=== PATIENT | male | born 1955 | race Caucasian/White ===

== ENCOUNTER 2018-08-25 16:23 | Emergency (ER) | payer BC ==
[~2018-08-25] VITALS: Ht 180.3 cm; Wt 79.4 kg
--- OUTSIDE RECORDS SUMMARY | ~2018-08-25 | XMS | Encounter Summary ---
Demographics + + + | Address | [address] | | | [place] [address] | + + + | Home Phone | | + + + | Preferred Language | Unknown | + + + | Marital Status | Single | + + + | Sikhism Affiliation | CAT | + + + | Race | White | + + + | Ethnic Group | Not or | + + + Author + + + | Author | [facility] | + + + | Organization | [facility] | + + + | Address | Unknown | + + + | Phone | Unavailable | + + + Support + + +---------+ + | Name | Relationship | Address | Phone | + + +---------+ + | Mirian Jha | ECON | Unknown | | + + +---------+ + Care Team Providers + +------+ + | Care Guitar Player Name | Role | Phone | + +------+ + PCP | Unavailable | + +------+ + Encounter Details +--------+ + + + + | Date | Type | Department | Care Team | Description | +--------+ + + + + | 04/08/ | DELETED | Preoperative | Consult, | ANESTHESIA/SEDATION | | 2001 | TRANSCRIPTI | Medicine Clinic at | Anesthesia [address] | | | | ON | [facility] [address]th Floor [address] [facility] | | | | | [address] | Road [place], [place] | | | | | Code: [address] | [address] | | | | | for Health and | | | | | | Healing,4th Floor | | | | | | [place], [place] | | | | | | [address] | | | | | | [phone] | | | +--------+ + + + + Social History + +-------+ +--------+------+ | Tobacco Use | Types | Packs/Day | Years | Date | | | | | Used | | + +-------+ +--------+------+ | Never Assessed | | | | | + +-------+ +--------+------+ + + + | Sex Assigned at | Date Recorded | | | | + + + | Not on file | | + + + + + + + | Job Start Date | Occupation | Industry | + + + + | Not on file | Not on file | Not on file | + + + + + + + + | Travel History | Travel Start | Travel End | + + + + + + | No recent travel history available. | + + documented as of this encounter Plan of Treatment Not on filedocumented as of this encounter Procedures + +--------+ + + + | Procedure Name | Priori | Date/Time | Associated Diagnosis | Comments | | | ty | | | | + +--------+ + + + | ANESTHESIA/SEDATION | | 04/08/2001 | | Results for this | | | | 11:17 AM | | procedure are in the | | | | PST | | results section. | + +--------+ + + + documented in this encounter Visit Diagnoses Not on filedocumented in this encounter"
--- OUTSIDE RECORDS SUMMARY | ~2018-08-25 | XMS | Encounter Summary ---
Demographics + + + | Address | [address] | | | [place] [address] | + + + | Home Phone | | + + + | Preferred Language | Unknown | + + + | Marital Status | Single | + + + | Voodoo Affiliation | CAT | + + + | Race | White | + + + | Ethnic Group | Not or | + + + Author + + + | Organization | Unknown | + + + | Address | Unknown | + + + | Phone | Unavailable | + + + Support + + +---------+ + | Name | Relationship | Address | Phone | + + +---------+ + | Mirian Jha | ECON | Unknown | | + + +---------+ + Care Team Providers + +------+ + | Care Data Entry Machine Operator Name | Role | Phone | + +------+ + PCP | Unavailable | + +------+ + Encounter Details +--------+ + + + + | Date | Type | Department | Care Team | Description | +--------+ + + + + | 03/09/ | Results | | [facility] | | | 2000 | Only | | [address] | | | | | | [place] | | | | | | [place] [address] | | +--------+ + + + + [...] | + +--------+ + + + | SURGICAL PATHOLOGY | Routin | 03/09/2001 | | Results for this | | | e | | | procedure are in the | | | | | | results section. | + +--------+ + + + documented in this encounter Results SURGICAL PATHOLOGY (03/09/2001) + + + + + + | Component | Value | Ref Range | Performed | Pathologist | | | | | At | Signature | + + + + + + | SURGICAL | SOURCE OF SPECIMEN: | | [facility] | | | PATHOLOGY | Outside consultation | | DEPARTMENT | | | | Materials Received:A | | OF | | | | total of sixteen slides | | PATHOLOGY | | | | are received from [facility] | | | | | | [facility],[place] | | | | | | [facility] [place]. Ten | | | | | | slides bear outside | | | | | | accession number | | | | | | [id number], andsix slides | | | | | | bear outside accession | | | | | | number [id number]. Two | | | | | | pathology | | | | | | reportsaccompany the | | | | | | slides bearing the same | | | | | | accession numbers dated | | | | | | 03/15/98, and02/14/98 | | | | | | respectively. 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 | | | | | | Clinton, Ph.D., | | | | | | M.DGamaliel/PathologistSixteen | | | | | | slides are returned with | | | | | | the reportT:03/11/01:re | | | | | | I have reviewed all | | | | | | diagnostic slides and | | | | | | have edited the gross | | | | | | and/ormicroscopic | | | | | | portion of this report | | | | | | as part of my pathologic | | | | | | assessment andfinal | | | | | | diagnosis. Clinical | | | | | | History:The patient is a | | | | | | 45 year old | | | | | | male.Rendering | | | | | | Diagnostician: An | | | | | | joseph Alonzo | | | | | | Ph.D.,M.D.PathologistEle | | | | | | ctronically Signed | | | | | | 03/11/2001Comment: | | | | | | SOURCE OF SPECIMEN: | | | | | | Outside consultation | | | | + + + + + + + + | Specimen | + + | | + + + + + + + | Performing | Address | City/State/Zipcode | Phone Number | | Organization | | | | + + + + + | [facility] | [address] | [place] [address] | | | PATHOLOGY | [place] | | | + + + + + | [facility] | [address] | [place] [address] | | | PATHOLOGY | [place] | | | + + + + + documented in this encounter Visit Diagnoses Not on filedocumented in this encounter"
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
--- OUTSIDE RECORDS SUMMARY | ~2018-08-25 | XMS | Encounter Summary ---
Demographics + + + | Address | [address] | | | [place] [address] | + + + | Home Phone | | + + + | Preferred Language | Unknown | + + + | Marital Status | Single | + + + | Scientology Affiliation | CAT | + + + | Race | White | + + + | Ethnic Group | Not or | + + + Author + + + | Author | [facility] | + + + | Organization | [facility] | + + + | Address | Unknown | + + + | Phone | Unavailable | + + + Support + + +---------+ + | Name | Relationship | Address | Phone | + + +---------+ + | Mirian Jha | ECON | Unknown | | + + +---------+ + Care Team Providers + +------+ + | Care Environmental Engineering Professor Name | Role | Phone | + [...] | | | | | region | [place], | [address] | | | | | Balance | [place] | for Health | | | | | problem | [address] | and Healing, | | | | | 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 | [phone] | [place], [place] | | | | | Bilateral | Fax: | [address] | | | | | carpal | [phone] | Phone: | | | | | tunnel | | [phone] | | | | | syndrome | | Fax: | | | | | Colorectal | | [phone] | | | | | cancer (HCC) [...] | gy | stenosis in | [address] | | | | | | cervical | [address] | | | | | | region | [place], | | | | | | Balance | [place] | | | | | | problem | [address] | | | | | | Facet | Phone: | | | | | | arthropathy | [phone] | | | | | | Bilateral | Fax: | | | | | | carpal | [phone] | | | | | | tunnel [...] | | | stenosis in | [address] | | | | | | cervical | [address] | | | | | | region | [place], | | | | | | Balance | [place] | | | | | | problem | [address] | | | | | | Facet | Phone: | | | | | | arthropathy | [phone] | | | | | | Bilateral | Fax: | | | | | | carpal | [phone] | | | | | | tunnel [...] | | | Therapy | Spinal | [address], | | | | | | stenosis in | [address] | | | | | | cervical | [address] | | | | | | region | [place], | | | | | | Balance | [place] | | | | | | problem | [address] | | | | | | Facet | Phone: | | | | | | arthropathy | [phone] | | | | | | Bilateral | Fax: | | | | | | carpal | [phone] | | | | | | tunnel [...] | | | | | region | [place], | | | | | | Balance | [place] | | | | | | problem | [address] | | | | | | Facet | Phone: | | | | | | arthropathy | [phone] | | | | | | Bilateral | Fax: | | | | | | carpal | [phone] | | | | | | tunnel [...] | | | | | BEND | [address] | | | | | | [address] | [address] | | | | | | CLINIC | [place], [place] | | | | | | DERMATOLOGY | [address] | | | | | | [address] | Phone: | | | | | | MEDICAL | [phone] | | | | | | [address] | Fax: | | | | | | [place], [place] | [phone] | | | | | | [address] | | | | | | | Phone: | | | | | | | [phone] | | | | | | | Fax: | | | | | | | [phone] | | +--------+ + + + + + Encounter Details +--------+---------+ + + + | Date | Type | Department | Care Team | Description | +--------+---------+ + + + | 06/06/ | Office | Neurosurgery at | Farzad Balbuena, | Spinal stenosis in | | 2016 | Visit | [facility] [address] | [address] | cervical region | | | | Ave Mailcode: CH8N | Ave [place], [place] | (Primary Dx); | | | | [place] for [facility] | [address] | Balance problem; | | | | and [facility] | [phone] | Facet arthropathy; | | | | Floor [place], [place] | | Bilateral carpal | | | | [address] | | tunnel syndrome; | | | | [phone] | | Colorectal cancer | | | [...] 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 Rep orts life long [...] questionna sharyn that will be scanned into [facility]. Current medication list: Current Outpatient Prescriptions Medication [...] involving C3. Dictated and Signed by: Harry Palacio MD Electronically signed: 12/30/2014 10:13 AM MRI [...] control of bowel/bladder). I spent 45 minutes [id number] with the patient. I spent more than 50% of this visit in co ordination of care and counseling in which we discussed diagnosis, treatment, imaging studie s and follow-up. Farzad Balbuena PA-C NEUROSURGERY AT [facility] [address] Mailcode: [address] [place] [address] documented in this e ncounter [...]
--- OUTSIDE RECORDS SUMMARY | ~2018-08-25 | XMS | Encounter Summary ---
Demographics + + + | Address | [address] | | | [place] [address] | + + + | Home Phone | | + + + | Preferred Language | Unknown | + + + | Marital Status | Single | + + + | Episcopal Affiliation | CAT | + + + | Race | White | + + + | Ethnic Group | Not or | + + + Author + + + | Author | [facility] | + + + | Organization | [facility] | + + + | Address | Unknown | + + + | Phone | Unavailable | + + + Support + + +---------+ + | Name | Relationship | Address | Phone | + + +---------+ + | Mirian Jha | ECON | Unknown | | + + +---------+ + Care Team Providers + +------+ + | Care Fuse Cutter Name | Role | Phone | + +------+ + PCP | Unavailable | + +------+ + Encounter Details +--------+ + + + + | Date | Type | Department | Care Team | Description | +--------+ + + + + | 06/05/ | Office | [facility] | Note, Outpatient | Progress Note | | 2001 | Visit-Trans | MEDICINE | Clinic | | | | cribed | | | | +--------+ + + + [...] + + documented as of this encounter Progress Notes Michael, [facility] Specialists In - 11/29/2005 1:12 AM PDTCLINIC DATE: 06/05/2001 COLORECTAL SURGERY CLINIC REASON FOR VISIT: Two-month followup status post abdominoperineal resection for recurrent anal cancer. HISTORY OF PRESENT ILLNESS: Mr. Napoles continues to have slow recovery from his surgery. He mostly has fatigue and pain in his midline incision of the perineum. His appetite is barely adequate. He says he is somewhat anorexic. He denies any fever, chills, nausea, or vomiting. His colostomy is functioning well. He is maintaining his hydration. PHYSICAL EXAMINATION: GENERAL: He appears fairly well although not as animated as he usually is. PELVIC: His midline would is well healed. His colostomy also appears normal. His perineal wound has healed with the exception of a 1-cm section in the most posterior portion. ASSESSMENT AND RECOMMENDATIONS: Fair recovery after abdominoperineal resection. I do not feel that there is any focal reason for his slow recovery. He has no evidence of infection or bowel obstruction. I have encouraged him to take nutritional supplements such as Carnations instant breakfast or Ensure at least 3 times a day to maintain his nutrition. He should also continue to take liquids. He certainly does not appear ready to go back to work. We filled out some paperwork so that he can start a flexible work schedule through his job. I will see him back in 3 months for routine followup. Dakota Macario M.D. SLAVA / CECE [id number] / [id number] / [id number] / [id number] C: 07/02/2001 norah cc: Obdulio Overton M.D. [address] [facility] [place] [address] Guido Alvarez M.D. [address] [place] [address] [id number] signed by Michael, [facility] In at 11/29/2005 1:12 AM NANNETTEdoc umented in this encounter Plan of Treatment Not on filedocumented as of this encounter Visit Diagnoses Not on filedocumented in this encounter"
--- OUTSIDE RECORDS SUMMARY | ~2018-08-25 | XMS | Encounter Summary ---
Demographics + + + | Address | [address] | | | [place] [address] | + + + | Home Phone | | + + + | Preferred Language | Unknown | + + + | Marital Status | Single | + + + | Latter Day Affiliation | CAT | + + + [...] Team Providers + +------+ + | Care Vending Manager Name | Role | Phone | + +------+ + PCP | Unavailable | + +------+ + Encounter Details +--------+ + + + + | Date | Type | Department | Care Team | Description | +--------+ + + + + | 04/07/ | Results | | Dakota Macario | | | 2001 | Only | | [address] | | | | | | [place], | | | | | | [place] [address] | | +--------+ + + + + [...] | + +--------+ + + + | BLOOD BANK PRODUCT | Routin | 04/07/2001 | | Results for this | | | e | 10:30 AM | | procedure are in the | | | | PST | | results section. | + +--------+ + + + | BLOOD BANK PRODUCT | Routin | 04/07/2001 | | Results for this | | | e | 10:30 AM | | procedure are in the | | | | PST | | results section. | + +--------+ + + + | TYPE AND SCREEN | Routin | 04/07/2001 | | Results for this | | | e | 10:30 AM | | procedure are in the | | | | PST | | results section. | + +--------+ + + + | SURGICAL PATHOLOGY | Routin | 04/07/2001 | | Results for this | | | e | | | procedure are in the | | | | | | results section. | + +--------+ + + + documented in this encounter Results BLOOD BANK PRODUCT (04/07/2001 10:30 AM PST) + + + + + + | Component | Value | Ref Range | Performed | Pathologist | | | | | At | Signature | + + + + + + | PRODUCT | RED CELL LEUKOREDUCED | | [facility] | | | DESCRIPTION | | | DEPARTMENT | | | | | | OF | | | | | | PATHOLOGY | | + + + + + + | PRODUCT | [id number] | | [facility] | | | UNIT # | | | DEPARTMENT | | | | | | OF | | | | | | PATHOLOGY | | + + + + + + | UNIT ABO | A | | [facility] | | | | | | DEPARTMENT | | | | | | OF | | | | | | PATHOLOGY | | + + + + + + | UNIT RH | NEG | | [facility] | | | | | | DEPARTMENT | | | | | | OF | | | | | | PATHOLOGY | | + + + + + + | STATUS OF | Released | | [facility] | | | UNIT | | | DEPARTMENT | | | | | | OF | | | | | | PATHOLOGY | | + + + + + + + + | Specimen | + + | | + + + + + + + | Performing | Address | City/State/Zipcode | Phone Number | | Organization | | | | + + + + + | [facility] DEPARTMENT OF | [address] | [place] [address] | | | PATHOLOGY | [address] | | | + + + + + | [facility] | [address] | [place] [address] | | | PATHOLOGY | [address] | | | + + + + + BLOOD BANK PRODUCT (04/07/2001 10:30 AM PST) + + + + + + | Component | Value | Ref Range | Performed | Pathologist | | | | | At | Signature | + + + + + + | PRODUCT | RED CELL LEUKOREDUCED | | [facility] | | | DESCRIPTION | | | DEPARTMENT | | | | | | OF | | | | | | PATHOLOGY | | + + + + + + | PRODUCT | [id number] | | [facility] | | | UNIT # | | | DEPARTMENT | | | | | | OF | | | | | | PATHOLOGY | | + + + + + + | UNIT ABO | O | | [facility] | | | | | | DEPARTMENT | | | | | | OF | | | | | | PATHOLOGY | | + + + + + + | UNIT RH | NEG | | [facility] | | | | | | DEPARTMENT | | | | | | OF | | | | | | PATHOLOGY | | + + + + + + | STATUS OF | Released | | [facility] | | | UNIT | | | DEPARTMENT | | | | | | OF | | | | | | PATHOLOGY | | + + + + + + + + | Specimen | + + | | + + + + + + + | Performing | Address | City/State/Zipcode | Phone Number | | Organization | | | | + + + + + | [facility] DEPARTMENT OF | [address] | [place], [place] [address] | | | PATHOLOGY | [address] | | | + + + + + | [facility] DEPARTMENT OF | [address] | [place] [address] | | | PATHOLOGY | [address] | | | + + + + + TYPE AND SCREEN (04/07/2001 10:30 AM PST) + +-------+ + + + | Component | Value | Ref Range | Performed | Pathologist | | | | | At | Signature | + +-------+ + + + | ABO GROUP | A | | [facility] | | | | | | DEPARTMENT | | | | | | OF | | | | | | PATHOLOGY | | + +-------+ + + + | RH TYPE | NEG | | [facility] | | | | | | DEPARTMENT | | | | | | OF | | | | | | PATHOLOGY | | + +-------+ + + + | ANTIBODY | NEG | | [facility] | | | SCREEN | | | DEPARTMENT | | | | | | OF | | | | | | PATHOLOGY | | + +-------+ + + + + + | Specimen | + + | | + + + + + | Narrative | Performed At | + + + | SPEC. OUTDATE 04/11/01 @ 0700 | [facility] | | | DEPARTMENT OF | | | PATHOLOGY | + + + + + + + + | Performing | Address | City/State/Zipcode | Phone Number | | Organization | | | | + + + + + | [facility] DEPARTMENT OF | [address] | [place] [address] | | | PATHOLOGY | [address] | | | + + + + + | [facility] DEPARTMENT OF | [address] | [place] [address] | | | PATHOLOGY | [address] | | | + + + + + SURGICAL PATHOLOGY (04/07/2001) + + + + + + | Component | Value | Ref Range | Performed | Pathologist | | | | | At | Signature | + + + + + + | SURGICAL | SOURCE OF SPECIMEN:A | | [facility] | | | PATHOLOGY | Rectum Final Pathologic | | DEPARTMENT | | | | Diagnosis:Rectoanal | | OF | | | | segment, | | PATHOLOGY | | | | abdominoperineal | | | | | | resection:- 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, well | | | | | | differentiated- Tumor | | | | | | size: 1.5 x 0.6 cm- | | | | | | Tumor | | | | | | configuration: Exophy | | | | | | tic- All surgical | | | | | | margins free of tumor- | | | | | | Blood/lymphatic vessel | | | | | | invasion absent- | | | | | | Perineural invasion | | | | | | absent- 2 lymph nodes | | | | | | negative for malignancy | | | | | | (0/2)- TNM stage based | | | | | | on pathologic | | | | | | findings: T1 N0 | | | | | | MX Case reviewed | | | | | | by:Samara Floyd, | | | | | | M.D./Alejandra Andersen | | | | | | Tl, | | | | | | M.D./PathologistT:04/15/ | | | | | | 02/ct I have reviewed | | | | | | all diagnostic slides | | | | | | and have edited the | | | | | | gross and/ormicroscopic | | | | | | portion of this report | | | | | | as part of my pathologic | | | | | | assessment andfinal | | | | | | diagnosis. Clinical | | | | | | History:The patient is a | | | | | | 45 year old male with | | | | | | recurrent anal | | | | | | carcinoma, excisedwith | | | | | | positive margins. Gross | | | | | | Description:Received is | | | | | | one specimen in formalin | | | | | | labeled | | | | | | "rectum." Received is | | | | | | a34.0 cm in length | | | | | | segment of rectosigmoid | | | | | | colon which is 3.0 cm | | | | | | incircumference at the | | | | | | proximal sigmoid margin | | | | | | and 5.5 cm in | | | | | | circumference atthe | | | | | | rectal distal | | | | | | margin. A 12.0 cm in | | | | | | length mesentery is | | | | | | present alongthe | | | | | | proximal segment of the | | | | | | sigmoid colon. There | | | | | | is a 1.5 x 0.6 | | | | | | cmtan-brown, centrally | | | | | | ulcerated tumor with | | | | | | raised borders. It | | | | | | straddles | | | | | | thesquamocolumnar | | | | | | junction and is located | | | | | | in the distal third of | | | | | | the rectumextending to | | | | | | 0.5 cm from the distal | | | | | | surgical margin and 28.0 | | | | | | cm from theproximal | | | | | | surgical | | | | | | margin. Cutting | | | | | | through the tumor | | | | | | reveals that itinvades | | | | | | the muscularis propria, | | | | | | but does not go through. | | | | | | The remainder ofthe | | | | | | mucosal surface appears | | | | | | unremarkable. The | | | | | | peritoneal reflection | | | | | | is24.0 cm in length from | | | | | | the distal | | | | | | margin. Also present | | | | | | is a strip ofperianal | | | | | | skin that measures 3.0 | | | | | | cm in length and 11.5 cm | | | | | | in circumference.The | | | | | | distal surgical margin | | | | | | is inked black and the | | | | | | proximal surgical | | | | | | marginis inked | | | | | | blue. The external | | | | | | serosal surface appears | | | | | | grossly unremarkable. | | | | | | Cassette Index:A1, | | | | | | section from the | | | | | | proximal surgical | | | | | | margin, RSA2, section | | | | | | from the distal surgical | | | | | | margin, RSA3, section | | | | | | from the distal surgical | | | | | | margin, RSA4, section | | | | | | from the tumor, RSA5, | | | | | | section from the tumor | | | | | | and the deep surgical | | | | | | margin, RSA6, section | | | | | | from the tumor and the | | | | | | deep surgical margin, | | | | | | RSA7, section from the | | | | | | colonic wall away from | | | | | | the area of the tumor, | | | | | | RSA8, section from the | | | | | | colonic mucosa away from | | | | | | the tumor, RSA9, two | | | | | | possible lymph nodes, | | | | | | RSA10, one possible | | | | | | lymph node, | | | | | | RSVK/AR/fRendering | | | | | | Diagnostician: Gay | | | | | | Tl | | | | | | M.ShivamPathologistElectroni | | | | | | diana Signed | | | | | | 04/15/2001Comment: | | | | | | SOURCE OF SPECIMEN: | | | | | | Rectum | | | | + + + + + + + + | Specimen | + + | | + + + + + + + | Performing | Address | City/State/Zipcode | Phone Number | | Organization | | | | + + + + + | [facility] | [address] | [place] [address] | | | PATHOLOGY | [address] | | | + + + + + | [facility] | [address] | [place] [address] | | | PATHOLOGY | [address] | | | + + + + + documented in this encounter Visit Diagnoses Not on filedocumented in this encounter
--- OUTSIDE RECORDS SUMMARY | ~2018-08-25 | XMS | Encounter Summary ---
Demographics + + + | Address | [address] | | | [place] [address] | + + + | Home Phone | | + + + | Preferred Language | Unknown | + + + | Marital Status | Single | + + + | Spiritism Affiliation | CAT | + + + | Race | White | + + + | Ethnic Group | Not or | + + + Author + + + | Author | [facility] | + + + | Organization | [facility] | + + + | Address | Unknown | + + + | Phone | Unavailable | + + + Support + + +---------+ + | Name | Relationship | Address | Phone | + + +---------+ + | Mirian Jha | ECON | Unknown | | + + +---------+ + Care Team Providers + +------+ + | Care Personal Financial Counselor Name | Role | Phone | + +------+ + PCP | Unavailable | + +------+ + Encounter Details +--------+ + + + + | Date | Type | Department | Care Team | Description | +--------+ + + + + | 09/07/ | Office | [facility] | Note, [...] documented as of this encounter Progress Notes Interface, Program Supervisor In - 11/21/2005 1:04 AM PDTCLINIC DATE: 09/07/2001 COLORECTAL SURGERY CLINIC SUBJECTIVE: Daniel returns for his 5-month followup after abdominoperineal resection for recurrent anal cancer. He is doing very well. The last time I saw him, he was having some failure to thrive, but this is completely resolved. He says it is because of better sleeping once he changed from a 2 piece to a 1-piece appliance. He otherwise is having no problems with his colostomy. He does still have erectile dysfunction since his surgery, and we will refer him to a urologist in the [place] [facility] to be evaluated. He is physically back to normal strength. He has been on a flexiplace work schedule, but believes that he is ready to return to full duty. This will likely mean that he will return to [place]. PHYSICAL EXAMINATION GENERAL: He looks well and is in good spirits. ABDOMEN: He has a well-healed midline incision with no evidence of ventral or parastomal hernias. His appliance was not removed. He has no hepatosplenomegaly. LYMPHATICS: There is no inguinal adenopathy. RECTAL: Rectum is surgically absent, and his perineal wound is completely healed. There is no evidence of occurrence or hernia. ASSESSMENT: No evidence of disease. I will see him back in 3 to 4 months for routine followup. We have provided him with a phone number for a doctor in the [facility] to address his erectile dysfunction. Dakota Macario M.D. SLAVA / CECE [id number] / [id number] / [id number] / cc: Ian Bourgeois M.D. [address] [place] [address] [id number] signed by Interface, Program Supervisor In at 11/21/2005 1: 04 AM PDTdocumented in this encounter Plan of Treatment Not on filedocumented as of this encounter Visit Diagnoses Not on filedocumented in this encounter"
--- OUTSIDE RECORDS SUMMARY | ~2018-08-25 | XMS | Encounter Summary ---
Demographics + + + | Address | [address] | | | [place] [address] | + + + | Home Phone | | + + + | Preferred Language | Unknown | + + + | Marital Status | Single | + + + | Religion Affiliation | CAT | + + + | Race | White | + + + | Ethnic Group | Not or | + + + Author + + + | Author | [facility] | + + + | Organization | [facility] | + + + | Address | Unknown | + + + | Phone | Unavailable | + + + Support + + +---------+ + | Name | Relationship | Address | Phone | + + +---------+ + | Mirian Jha | ECON | Unknown | | + + +---------+ + Care Team Providers + +------+ + | Care Optometric Assistant Name | Role | Phone | + +------+ + | Ramu Trinidad MD | PCP | | + +------+ + Reason for Visit Diagnostic Testing (Routine) + +--------+ + + [...] | | | | | region | [place], | [address] | | | | | Balance | [place] | for Health | | | | | problem | [address] | and Healing, | | | | | 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 | [phone] | [place], [place] | | | | | 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 | | [phone] | | | | | syndrome | | Fax: | | | | | Colorectal | | [phone] | | | | | cancer (HCC) [...] | + +--------+ + + + + Encounter Details +--------+ + + + + | Date | Type | Department | Care Team | Description | +--------+ + + + + | 08/22/ | Hospital | Neurophysiology | Gentry Bee MD | Liliam (Patient | | 2016 | Encounter | [facility] at [facility] 8th Floor | [address] | Request) | | | | [address] | [facility] [place] | | | | | Mail Code: CHE | [address] | | | | | [facility] | [phone] | | | | | and Healing, 8th | | | | | | floor [facility] [place] | [address] | | | | | [address] | [place], [place] | | | | | [phone] | [address] | | | | | | [phone] [place], | | | | | | [address] | | | | | | [address] [facility] | | | | | | [place], [place] | | | | | | [address] | | +--------+ + + + + [...] + + documented as of this encounter Medications at Time of Discharge + + + +---------+ + + | Medication | Sig | Dispensed | Refills | Start | End Date | | | | | | Date | | + + + +---------+ + + | aspirin EC 81 mg | Take by mouth. | | 0 | 01/02/20 | | | oral tablet,delayed | | | | 13 | | | release (/EC) | | | | | | + + + +---------+ + + | atorvastatin 20 mg | Take by mouth. | | 0 | 01/03/20 | | | oral tablet | | | | 15 | | + + + +---------+ + + | cholecalciferol, | Take 1,000 Units by | | 0 | 03/13/20 | | | Vitamin D3, 1,000 | mouth once daily. | | | 10 | | | unit oral capsule | | | | | | + + + +---------+ + + | cyclobenzaprine 10 | Take 10 mg by mouth | | 0 | | | | mg oral tablet | three times daily as | | | | | | | needed. Do not use | | | | | | | longer than 2-3 | | | | | | | weeks. | | | | | + + + +---------+ + + | traMADol 50 mg | Take 50 mg by mouth | | 0 | 04/26/19 | | | oral tablet | once daily as | | | 16 | | | | needed. | | | | | + + + +---------+ + + documented as of this encounter Plan of Treatment Not on filedocumented as of this encounter Visit Diagnoses Not on filedocumented in this encounter
--- OUTSIDE RECORDS SUMMARY | ~2018-08-25 | XMS | Encounter Summary ---
Demographics + + + | Address | [address] | | | [place] [address] | + + + | Home Phone | | + + + | Preferred Language | Unknown | + + + | Marital Status | Single | + + + | Yarsanism Affiliation | CAT | + + + [...] Team Providers + +------+ + | Care Locomotive Operator Name | Role | Phone | + +------+ + PCP | Unavailable | + +------+ + Encounter Details +--------+ + + + + | Date | Type | Department | Care Team | Description | +--------+ + + + + | 02/22/ | Results | | Other, Faculty | | | 2002 | Only | | [phone] | | +--------+ + + + + [...] | + +--------+ + + + | HEPATITIS C | Routin | 02/22/2003 | | Results for this | | QUANTITATIVE, PLASMA | e | 2:25 PM | | procedure are in the | | | | PST | | results section. | + +--------+ + + + | ALT, PLASMA | Routin | 02/22/2003 | | Results for this | | | e | 2:25 PM | | procedure are in the | | | | PST | | results section. | + +--------+ + + + | AST, PLASMA | Routin | 02/22/2003 | | Results for this | | | e | 2:25 PM | | procedure are in the | | | | PST | | results section. | + +--------+ + + + documented in this encounter Results ALT (02/22/2003 2:25 PM PST) + +-------+ + + + | Component | Value | Ref Range | Performed | Pathologist | | | | | At | Signature | + +-------+ + + + | ALT (SGPT) | 15 | 13 - 48 U/L | [facility] | | | | | | DEPARTMENT | | | | | | OF | | | | | | PATHOLOGY | | + +-------+ + + + + + | Specimen | + + | | + + + + + | Narrative | Performed At | + + + | Ordered by UNKNOWN DOCTOR | [facility] | | | DEPARTMENT OF | | | PATHOLOGY | + + + + + + + + | Performing | Address | City/State/Zipcode | Phone Number | | Organization | | | | + + + + + | [facility] | [address] | [place] [address] | | | PATHOLOGY | [address] | | | + + + + + | [facility] | [address] [place] [address] | [place] [address] | | | PATHOLOGY | [address] | | | + + + + + AST (02/22/2003 2:25 PM PST) + +-------+ + + + | Component | Value | Ref Range | Performed | Pathologist | | | | | At | Signature | + +-------+ + + + | AST(SGOT) | 19 | 15 - 41 U/L | [facility] | | | | | | DEPARTMENT | | | | | | OF | | | | | | PATHOLOGY | | + +-------+ + + + + + | Specimen | + + | | + + + + + | Narrative | Performed At | + + + | Ordered by UNKNOWN DOCTOR | [facility] | | | DEPARTMENT OF | | | PATHOLOGY | + + + + + + + + | Performing | Address | City/State/Zipcode | Phone Number | | Organization | | | | + + + + + | [facility] | [address] | [place] [address] | | | PATHOLOGY | [address] | | | + + + + + | [facility] | [address] | [place] [address] | | | PATHOLOGY | [address] | | | + + + + + HEP C QUANT (02/22/2003 2:25 PM PST) + + + + + + | Component | Value | Ref Range | Performed | Pathologist | | | | | At | Signature | + + + + + + | HEP C PCR, | < 95113 | IU/mL | | | | QUANT | | | | | + + + + + + | INTERPRET | As per your request, we | | | | | DNA | have completed a | | | | | | quantitative polymerase | | | | | | chainreaction (PCR) | | | | | | based viral load study | | | | | | to measure the amount of | | | | | | serumHepatitis C virus | | | | | | (HCV) RNA. For this | | | | | | assay, serum-derived RNA | | | | | | isreverse transcribed | | | | | | with an HCV specific | | | | | | primer followed by | | | | | | PCRamplification with | | | | | | primers from the | | | | | | highly-conserved 5' | | | | | | untranslatedregion of | | | | | | HCV. Internal control | | | | | | RNAs of known quantity | | | | | | serve asquantitation | | | | | | standards. The signal | | | | | | from an | | | | | | immobilized,colorimetric | | | | | | ally-detectable | | | | | | HCV-specific probe | | | | | | (hybridized to the | | | | | | PCRproducts, | | | | | | quantitation standards | | | | | | and controls) has been | | | | | | examined and theclinical | | | | | | interpretation is | | | | | | detailed below. The | | | | | | reportable range for | | | | | | thestandard assay is | | | | | | 12,000 - 17,000,000 HCV | | | | | | IU/mL of serum. The | | | | | | absence of detectable | | | | | | levels of HCV RNA | | | | | | suggests either the | | | | | | absenceof HCV viremia or | | | | | | the presence of | | | | | | low-level HCV viremia at | | | | | | or below thisassay's | | | | | | lower sensitivity limit | | | | | | of approximately 12,000 | | | | | | IU per mL | | | | | | ofserum. Low HCV | | | | | | viral loads (below | | | | | | approx 800,000 IU/mL) | | | | | | are a goodprognostic | | | | | | indicator for predicting | | | | | | the efficacy of | | | | | | antiviral therapy,and | | | | | | may indicate the need | | | | | | for a shorter time | | | | | | course of anti-viral | | | | | | drugs.Although HCV viral | | | | | | load values may be | | | | | | useful for monitoring | | | | | | antiviraltherapy, their | | | | | | relative imprecision | | | | | | suggests that viral load | | | | | | changes ofless than | | | | | | approx 3 fold may not be | | | | | | clinically significant | | | | | | and should beinterpreted | | | | | | cautiously. A | | | | | | low-level quantitative | | | | | | HCV viral load assaywith | | | | | | a reduced lower | | | | | | sensitivity limit of 600 | | | | | | IU per mL is available | | | | | | uponrequest (test #8814) | | | | | | and may be clinically | | | | | | indicated. The most | | | | | | sensitiveHCV RNA assay | | | | | | is the qualitative assay | | | | | | (test#8805) with a | | | | | | lowersensitivity limit | | | | | | of approximately 50 IU | | | | | | per mL of serum. This | | | | | | test was developed and | | | | | | its performance | | | | | | characteristics | | | | | | determined bythe [facility] | | | | | | DNA Diagnostic | | | | | | Laboratory. It has | | | | | | not been cleared or | | | | | | approvedby the Food and | | | | | | Drug | | | | | | Administration. FDA | | | | | | approval is not required | | | | | | forclinical use of the | | | | | | test, and therefore | | | | | | validation was done as | | | | | | requiredunder the | | | | | | requirements of the | | | | | | Clinical Laboratory | | | | | | Improvement Act | | | | | | se1382. The [facility] DNA | | | | | | Diagnostic Laboratory is | | | | | | a fully licensed | | | | | | and/oraccredited | | | | | | clinical laboratory | | | | | | under CLIA, CAP, and the | | | | | | State of [place]. | | | | + + + + + + | DNA | Reviewed and | | | | | SIGNATURE | electronically signed by | | | | | | Dandy Aguirre MD., | | | | | | PhD. | | | | + + + + + + | SPECIMEN | Serum | | | | | TYPE | | | | | | SUBMITTED | | | | | + + + + + + + + | Specimen | + + | | + + + + + | Narrative | Performed At | + + + | Ordered by LAZARO MCDANIELS | | + + + + + + + + | Performing | Address | City/State/Zipcode | Phone Number | | Organization | | | | + + + + + | [facility] | [place] [facility] | [place] [address] | | | GENETICS LABS | [address] | | | | | [address] | | | + + + + + documented in this encounter Visit Diagnoses Not on filedocumented in this encounter"
--- OUTSIDE RECORDS SUMMARY | ~2018-08-25 | XMS | Encounter Summary ---
Demographics + + + | Address | [address] | | | [place] [address] | + + + | Home Phone | | + + + | Preferred Language | Unknown | + + + | Marital Status | Single | + + + | Evangelical Affiliation | CAT | + + + | Race | White | + + + | Ethnic Group | Not or | + + + Author + + + | Author | [facility] | + + + | Organization | [facility] | + + + | Address | Unknown | + + + | Phone | Unavailable | + + + Support + + +---------+ + | Name | Relationship | Address | Phone | + + +---------+ + | Mirian Jha | ECON | Unknown | | + + +---------+ + Care Team Providers + +------+ + | Care Program Director/Music Director Name | Role | Phone | + [...] as of this encounter Progress Notes Interface, Power Tool Repairer In - 11/21/2005 1:04 AM PDTCLINIC DATE: [...] refer him to a urologist in the [facility] or [facility] to be evaluated. He is physically back to normal strength. He has been on a flexiplace work schedule, but believes that he is ready to return to full duty. This will likely mean that he will return to [place]. PHYSICAL EXAMINATION GENERAL: He looks well and [...] phone number for a doctor in the [facility] to address his erectile dysfunction. Dakota Macario M.D. SLAVA / CECE [phone] / [phone] / [phone] / cc: Ian Bourgeois M.D. [address] [place] [address] [id number] signed by Interface, Power Tool Repairer In at 11/21/2005 1: 04 AM PDTdocumented in this encounter Plan of Treatment Not on filedocumented as of this encounter Visit Diagnoses Not on filedocumented in this encounter"
--- OUTSIDE RECORDS SUMMARY | ~2018-08-25 | XMS | Encounter Summary ---
Demographics + + + | Address | [address] | | | [place] [address] | + + + | Home Phone | | + + + | Preferred Language | Unknown | + + + | Marital Status | Single | + + + | Pentecostal Affiliation | CAT | + + + [...] Team Providers + +------+ + | Care Postal Supervisor Name | Role | Phone | + +------+ + PCP | Unavailable | + +------+ + Encounter Details +--------+ + + + + | Date | Type | Department | Care Team | Description | +--------+ + + + + | 04/07/ | Procedure - | | Record, Operation | Operative Report | | 2001 | | | | | | | Transcribed | | | | +--------+ + + [...] | + +--------+ + + + | OPERATION RECORD | | 04/07/2001 | | Results for this | | | | | | procedure are in the | | | | | | results section. | + +--------+ + + + documented in this encounter Results OPERATION RECORD (04/07/2001) + + | Transcriptions | + + | Interface, Transit Bus Driver In - 12/10/2005 3:11 AM PDT | | [facility] [address] Jason | | [place], [place] [address] | | [facility] CenterOPERATION RECORDMed Rec No.: | | [id number] Date: 04/07/2001Name: Nicolas NapolesATTENDING | | SURGEON:Dakota Macario M.D.ASSISTANT DIRECTOR OF FINANCIAL AID: Edmar Mendez | | TimPREOPERATIVE DIAGNOSIS:Recurrent anal squamous cell carcinoma.POSTOPERATIVE | | DIAGNOSIS:Recurrent anal squamous cell carcinoma.OPERATION PERFORMED:Abdominoperineal | | resection using total mesorectal excision technique.ANESTHESIA:General | | endotracheal.SPECIMEN:Rectosigmoid colon to pathology.ESTIMATED BLOOD LOSS:250 | | cc.FLUIDS:4600 cc crystalloid.URINE OUTPUT:1700 cc.DRAINS:Eren-Bennett times two in the | | pelvis.COMPLICATIONS:None.COUNTS:Sponge and instrument counts were correct times | | two.DISPOSITION:The patient was stable to recovery.INDICATIONS:The patient is a | | 45-year-old gentleman with a history of chronic hepatitisC who was diagnosed with anal | | cancer in January 1998. He underwent 5400centigrade of definitive radiation | | therapy for stage one disease.Unfortunately he has recurred and there are no | | curative radiochemotherapyoptions available and the lesion is not amenable to local | | excision. Thepatient now presents for abdominoperineal resection and | | permanentcolostomy.FINDINGS:The patient had no evidence of metastatic disease. The | | liver appearednormal with no evidence of cirrhosis. The gallbladder also | | appearednormal. Abdominoperineal resection was performed using total | | mesorectalexcision technique.PROCEDURE:The patient was brought to the operating room | | and placed supine on theoperating room table. After successful induction of | | general endotrachealanesthesia the patient was placed into a neutral lithotomy | | position on awell-padded operating room table. Orogastric and Burnett catheters | | wereplaced. Rectal irrigation was also performed and a Malecot rectal catheterwas left | | in place following Betadine irrigation.The buttocks were gently taped apart. The | | patient had receivedpreoperative stoma counseling and siting and the sites were | | scored with [id number]-[id number] needle. The abdomen and perineum were then shaved, prepped, | | anddraped in the usual fashion. A generous midline incision was made and theperitoneum | | was entered uneventfully. An entering drape and Bookwalterretractor were | | placed.Thorough exploration of the abdomen showed no evidence of | | metastaticdisease. The stomach had a nasogastric tube in place. Duodenal | | sweepappeared normal. There was a small amount of shotty adenopathy in theporta | | hepatis. Visual and bimanual inspection of the liver were performedrevealing a grossly | | normal appearing liver with no evidence of metastaticdisease or cirrhosis. The | | gallbladder was somewhat shrunken with nopalpable cholelithiasis. The small bowel | | was run from the ligament ofTreitz to the ileocecal valve and no abnormalities | | were noted. Theremainder of the colon was normal to gross palpation. The | | vpxidsmojszxfbc-fa-jgi also appeared normal. There were no overt signs of | | radiationchanges to any of the bowel.The left colon was then mobilized out of its | | retroperitoneal location bymaintaining a plane along the mesentery. Dissection was | | carried mediallyup to the root of the inferior mesenteric artery at the aorta. | | Thepresacral space was entered just underneath the superior rectal artery asit coursed | | over the sacral promontory. The base of the sigmoid mesenteryon the right side was | | also scored and the presacral space connected to theother side. The avascular plane | | of the presacral space was continuedproximally until the root of the inferior | | mesenteric artery was identified,at which time it was suture ligated.The mesentery of | | the descending/sigmoid colon junction was then dividedbetween Tiana clamps. This | | provided excellent reach for a descendingcolostomy to be fashioned at the end of | | the procedure. Total mesorectalexcision technique was then used to complete the | | proctectomy. The planebetween the presacral fascia and the fascia propria of the | | mesorectum wasmaintained posteriorly. There was a mild amount of chronic | | radiationfibrosis as we got down to the lower portion of the rectum.The anterior | | dissection was performed along Denonvilliers fascia in aneffort to minimize | | neurologic injury. The abdominal portion of thedissection was then concluded once | | we reached the upper anal canal fromabove. The pelvis was hemostatic and the | | proximal colon was placed downposteriorly to be accessed from below. We then went | | below to perform theperineal portion of the procedure. The rectal tube was removed | | and apursestring suture was placed around the anal margin to incorporate | | theentirety of the tumor with a 2-centimeter margin.A larger elliptical incision was | | then created around the perineum.Dissection was carried up bilaterally in the | | ischiorectal fossas and thenposteriorly. The anococcygeal ligament was divided | | transversely and wewere able to connect the presacral space of both. The levator | | muscles weredivided bilaterally through the assistance of a finger up above | | thepresacral space passed from below. Once the levators had been | | dividedposteriorly and laterally on both sides, the specimen was delivered out | | theperineal wound posteriorly to help facilitate anterior dissection.The dissection | | was performed fairly easily along the prostate. Oncecompletely freed the specimen | | was handed off and sent to pathology. Theperineal wound was inspected. | | Electrocautery was used for hemostasis. Theperineal wound was irrigated copiously and | | then closed in multiple layersof 0 Vicryl interrupted sutures on the levators followed | | by multiple layersof absorbable interrupted sutures in the ischiorectal fat and | | subdermallayers.From above the abdomen was inspected and all dissection sites | | werehemostatic. Two Eren-Bennett drains were brought through a separate stabincision | | in the right lower quadrant and placed in the pelvis. These weresecured to the skin | | with 2-0 nylon sutures. The left-sided colostomy sitewas chosen and an abdominal wall | | fenestration was created after excising adisc of skin and performing a rectus | | splitting dissection. The colostomywas brought out and tagged with a Khadijah clamp.The | | lateral window between the colon and the left pericolic gutter wasclosed with a | | running 3-0 Vicryl suture. The fascia was then closed usingloop #1 PDS suture followed | | by 4-0 Vicryl subcuticular on the skin. Thecolostomy was matured using a | | three-point Malvern fashion to josé luis the stomaapproximately 1 centimeter. The | | colostomy appliance was placed. Thepatient tolerated the procedure well and was | | transferred to recovery instable condition.Dakota Macario M.D.MW:[id number]: 04/07/2001T: | | 04/08/[id number]:KATLYN PAZ MD[address] [id number] | | JANEEN MONTESINOS[address] [facility] [address] | |revealing a grossly normal appearing liver with no evidence of metastatic | |disease or cirrhosis. The gallbladder was somewhat shrunken with no | |palpable cholelithiasis. The small bowel was run from the ligament of | |Treitz to the ileocecal valve and no abnormalities were noted. The | |remainder of the colon was normal to gross palpation. The rectovesical | |cul-de-sac also appeared normal. There were no overt signs of radiation | |changes to any of the bowel. | | | |The left colon was then mobilized out of its retroperitoneal location by | |maintaining a plane along the mesentery. Dissection was carried medially | |up to the root of the inferior mesenteric artery at the aorta. The | |presacral space was entered just underneath the superior rectal artery as | |it coursed over the sacral promontory. The base of the sigmoid mesentery | |on the right side was also scored and the presacral space connected to the | |other side. The avascular plane of the presacral space was continued | |proximally until the root of the inferior mesenteric artery was identified, | |at which time it was suture ligated. | | | |The mesentery of the descending/sigmoid colon junction was then divided | |between Tiana clamps. This provided excellent reach for a descending | |colostomy to be fashioned at the end of the procedure. Total mesorectal | |excision technique was then used to complete the proctectomy. The plane | |between the presacral fascia and the fascia propria of the mesorectum was | |maintained posteriorly. There was a mild amount of chronic radiation | |fibrosis as we got down to the lower portion of the rectum. | | | |The anterior dissection was performed along Denonvilliers fascia in an | |effort to minimize neurologic injury. The abdominal portion of the | |dissection was then concluded once we reached the upper anal canal from | |above. The pelvis was hemostatic and the proximal colon was placed down | |posteriorly to be accessed from below. We then went below to perform the | |perineal portion of the procedure. The rectal tube was removed and a | |pursestring suture was placed around the anal margin to incorporate the | |entirety of the tumor with a 2-centimeter margin. | | | |A larger elliptical incision was then created around the perineum. | |Dissection was carried up bilaterally in the ischiorectal fossas and then | |posteriorly. The anococcygeal ligament was divided transversely and we | |were able to connect the presacral space of both. The levator muscles were | |divided bilaterally through the assistance of a finger up above the | |presacral space passed from below. Once the levators had been divided | |posteriorly and laterally on both sides, the specimen was delivered out the | |perineal wound posteriorly to help facilitate anterior dissection. | | | |The dissection was performed fairly easily along the prostate. Once | |completely freed the specimen was handed off and sent to pathology. The | |perineal wound was inspected. Electrocautery was used for hemostasis. The | |perineal wound was irrigated copiously and then closed in multiple layers | |of 0 Vicryl interrupted sutures on the levators followed by multiple layers | |of absorbable interrupted sutures in the ischiorectal fat and subdermal | |layers. | | | |From above the abdomen was inspected and all dissection sites were | |hemostatic. Two Eren-Bennett drains were brought through a separate stab | |incision in the right lower quadrant and placed in the pelvis. These were | |secured to the skin with 2-0 nylon sutures. The left-sided colostomy site | |was chosen and an abdominal wall fenestration was created after excising a | |disc of skin and performing a rectus splitting dissection. The colostomy | |was brought out and tagged with a Heflin clamp. | | | |The lateral window between the colon and the left pericolic gutter was | |closed with a running 3-0 Vicryl suture. The fascia was then closed using | |loop #1 PDS suture followed by 4-0 Vicryl subcuticular on the skin. The | |colostomy was matured using a three-point Malvern fashion to josé luis the stoma | |approximately 1 centimeter. The colostomy appliance was placed. The | |patient tolerated the procedure well and was transferred to recovery in | |stable condition. | | | | | | | |Dakota Macario M.D. | | | |[id number] | | | | | [phone] | | | |cc: | | | | | |KATLYN PAZ MD | |[address] [facility] [address] | |[place] [address] | | | | | |PK VERNON MD | |[address] | |[place] [address] | + + documented in this encounter Visit Diagnoses Not on filedocumented in this encounter"
--- OUTSIDE RECORDS SUMMARY | ~2018-08-25 | XMS | Encounter Summary ---
Demographics + + + | Address | [address] | | | [place] [address] | + + + | Home Phone | | + + + | Preferred Language | Unknown | + + + | Marital Status | Single | + + + | Presybeterian Affiliation | CAT | + + + [...] Team Providers + +------+ + | Care Roustabout Head Name | Role | Phone | + +------+ + PCP | Unavailable | + +------+ + Encounter Details +--------+ + + + + | Date | Type | Department | Care Team | Description | +--------+ + + + + | 04/12/ | Discharge | | Summary, Discharge | D/C Summary ODDS | | 2001 | Summary-Tra | | | | | | nscribed | | | | +--------+ + + [...] + + documented as of this encounter Discharge Summaries Interface, Business Initiatives Manager In - 12/10/2005 3:11 AM PDT [place] [address] [place], [place] [address] [facility] MEDICAL SUMMARY OF HOSPITALIZATION Med Rec No: [id number] Admission Date: 04/07/2001 Name: Nicolas Napoles Discharge Date: 04/12/2001 STAFF PHYSICIAN: Dakota Macario M.D. PRINCIPAL FINAL DIAGNOSIS: Recurrent anal cancer. PRINCIPAL PROCEDURE: Abdominoperineal resection and colostomy. ADDITIONAL PROCEDURES: 1. Enterostomal therapy nursing. 2. Nutrition support. 3. Magnetic resonance imaging. 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 The patient underwent radiation therapy and he had never undergone close follow-up. During the last six months, he had increased lumps and discomfort in the same region of his anal canal and returned to see his primary physician who suspected recurrence. He had excision that represented well differentiated squamous cell carcinoma with positive lateral and deep margin on 01/09/2001. He now presents for definitive therapy for this recurrence. PAST MEDICAL HISTORY: Chronic hepatitis C. PAST SURGICAL HISTORY: The above mentioned anal surgery and knee surgery. CURRENT MEDICATIONS: None. ALLERGIES: None. FAMILY HISTORY: Negative for colorectal cancer, inflammatory bowel disease, or anal cancer. REVIEW OF SYSTEMS: CARDIAC: No chest pain, angina, myocardial infarction, or hypertension. PULMONARY: No asthma or pneumonia. GENITOURINARY: No kidney failure or urinary symptoms. ENDOCRINE: No diabetes or thyroid abnormalities. NEUROLOGIC: Negative. PSYCHIATRIC: Negative. 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 He smokes three quarters of a pack of cigarettes per day. No consumption of alcohol reported. PHYSICAL EXAMINATION: GENERAL: Young gentleman, fully bearded who is awake, alert, and oriented. CHEST: Lungs clear to auscultation bilaterally. CARDIOVASCULAR: Regular rate and rhythm. ABDOMEN: Soft, nontender, nondistended. RECTAL: Patient unable to tolerate digital rectal examination. Firm area in the right lateral anal canal extending to the intersphincteric groove. EXTREMITIES: 2+ femoral pulses bilaterally with no peripheral edema. HOSPITAL COURSE: The patient was admitted on 04/07/2001 where he underwent an abdominoperineal resection using total mesorectal excision technique and a colostomy. The final pathology on the rectoanal segment revealed a squamous cell carcinoma well differentiated, tumor size 1.5 x 0.6 cm. All surgical margins were free of tumor. There was an abscess of blood lymphatic vessel invasion. There was no perineal invasion present. Two lymph nodes were negative for malignancy. TNM staging based on pathologic finding is [id number]. The patient had placement of two Eren-Bennett drains in the pelvis at the time of surgery. There were no intraoperative complications. The patient was transferred in stable condition to the ICU. He was then transferred to the hospital bond in stable condition and patient-controlled analgesia for pain. He was seen by Enterostomal Therapy and counseled regarding colostomy care and stoma products. He was seen by Nutrition and provided with handouts on diet following colostomy. He was started on clear liquids, which he tolerated well and advanced to a regular diet. Eren-Bennett drains were removed. Prevacid was added related to persistent heartburn. An MRI done revealed a shoulder that was negative for fracture related to patient's report of pain. His Burnett was discontinued successfully and the patient was able to urinate independently. On 04/12/2001, the patient's vital signs were stable and he was deemed ready for discharge. His incisions were clean, dry, and intact. His stoma was pink. There was stool evident in the stoma appliance. DISPOSITION: Home. CONDITION ON DISCHARGE: Stable. DISCHARGE MEDICATIONS: Vicodin one to two p.o. q. four hours p.r.n. pain. DISCHARGE INSTRUCTIONS: ACTIVITY: No heavy lifting greater than 10 pounds for four weeks. DIET: Regular as tolerated. FOLLOW-UP: Return to General Surgery in two weeks for follow-up with Tim Garcia A.C.N.P. Mark Whiteford, M.D. [id number] cc: JEOVANY ABREU MD [address] [place] [address] KATLYN PAZ MD [address] [facility] 2 [place] [address] ANNABEL HAN MD [address] [facility] [address] RENEE VALADEZ MD [address] [facility] [address] cc: UNKNOWN [id number] signed by Interface, Business Initiatives Manager In at 12/10/2005 3:11 AM [facility] umented in this encounter Plan of Treatment Not on filedocumented as of this encounter Visit Diagnoses Not on filedocumented in this encounter"
--- OUTSIDE RECORDS SUMMARY | ~2018-08-25 | XMS | Encounter Summary ---
Demographics + + + | Address | [address] | | | [place] [address] | + + + | Home Phone | | + + + | Preferred Language | Unknown | + + + | Marital Status | Single | + + + | Worship Affiliation | CAT | + + + | Race | White | + + + | Ethnic Group | Not or | + + + Author + + + | Author | [facility] | + + + | Organization | [facility] | + + + | Address | Unknown | + + + | Phone | Unavailable | + + + Support + + +---------+ + | Name | Relationship | Address | Phone | + + +---------+ + | Mirian Jha | ECON | Unknown | | + + +---------+ + Care Team Providers + +------+ + | Care Furniture Sander Name | Role | Phone | + [...] | | | | | region | [place], | [address] | | | | | Balance | [place] | for Health | | | | | problem | [address] | and Healing, | | | | | 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 | [phone] | [place], [place] | | | | | Bilateral | Fax: | [address] | | | | | carpal | [phone] | Phone: | | | | | tunnel | | [phone] | | | | | syndrome | | Fax: | | | | | Colorectal | | [phone] | | | | | cancer (HCC) [...] | 2016 | Encounter | [facility] 8th Floor | [address] | Request) | | | | [address] | [facility] [place] | | | | | Mail Code: CHE | [address] | | | | | [facility] | [phone] | | | | | and Healing, 8th | | | | | | floor [facility] [place] | Charles Kelly | | | | | [address] | [place], [place] | | | | | [phone] | [address] | | | | | | [phone] [place], | | | | | | [address] | | | | | | [address]az [address] [facility] | | | | | | [place], [place] | | | | | | [address] | | +--------+ + + + + [...]
--- OUTSIDE RECORDS SUMMARY | ~2018-08-25 | XMS | Encounter Summary ---
Demographics + + + | Address | [address] | | | [place] [address] | + + + | Home Phone | | + + + | Preferred Language | Unknown | + + + | Marital Status | Single | + + + | Taoist Affiliation | CAT | + + + | Race | White | + + + | Ethnic Group | Not or | + + + Author + + + | Author | [facility] | + + + | Organization | [facility] | + + + | Address | Unknown | + + + | Phone | Unavailable | + + + Support + + +---------+ + | Name | Relationship | Address | Phone | + + +---------+ + | Mirian Jha | ECON | Unknown | | + + +---------+ + Care Team Providers + +------+ + | Care Operations Officer Afloat Name | Role | Phone | + +------+ + PCP | Unavailable | + +------+ + Encounter Details +--------+ + + + + | Date | Type | Department | Care Team | Description | +--------+ + + + + | 03/09/ | Office | [facility] | Note, Outpatient | Progress Note | | 2000 | Visit-Trans | MEDICINE | Clinic | [...] as of this encounter Progress Notes Interface, Picking Machine Operator In - 12/10/2005 3:11 AM PDTCLINIC DATE: 03/09/2001 [facility] REFERRING PHYSICIAN: Obdulio Overton M.D. 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 HISTORY OF PRESENT ILLNESS: Mr. 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 The tumor measured approximately 4 cm x 2 cm x 2 cm including the condylomatous portion. It was located in the right anal canal. From March 27, 1998, to May 05, 1998, he underwent 5400 centigray of radiation therapy administered by Dr. Ash Ng in [place]. The inguinal regions were also covered. Mr. Napoles travels around the country for his job spending much of his time in the [place], [place] region. He has never undergone a close followup, however; he has noted over the last 6 months, increased lump and discomfort in the same region of his anal canal. He was recently back to see Dr. Overton who suspected the recurrence of his carcinoma. On January 09, 2001, he underwent excision which demonstrated a well-differentiated squamous cell carcinoma with a positive lateral and deep margin. Mr. Napoles has since been back for a second opinion by Dr. Ng who does not feel that additional radiation therapy would be of any benefit for him at this time. Mr. Napoles now presents for a second opinion. Current bowel movement frequency is approximately every 4 hours with significant amount of urge. There is bleeding on the toilet tissue, and he has some pain with defecation. He does not report any true fecal incontinence. He has never undergone colonoscopy. PAST MEDICAL HISTORY: Chronic hepatitis C. PAST SURGICAL HISTORY: The above mentioned anal surgery and knee surgery. CURRENT MEDICATIONS: None. ALLERGIES: None. FAMILY HISTORY: Negative for colorectal cancer, inflammatory bowel disease, or anal caner. He denies any anorectal intercourse and is HIV negative on a recent screen. REVIEW OF SYSTEMS: CONSTITUTIONAL: He denies any fever or weight loss. HEENT: No inflammation of the eyes, blindness, or ulcers in his mouth. CARDIAC: He denies chest pain, angina, myocardial infarction, palpitations, prior heart surgery, hypertension, or stroke. PULMONARY: Negative for asthma or pneumonia. GI: Only positive for the anal cancer and chronic hepatitis C. He denies any peptic ulcer or pancreatic disease. : Negative for kidney failure, urinary, or erectile dysfunction. ENDOCRINE: Negative for diabetes or thyroid abnormalities. Arthritis negative. NEUROLOGIC: Negative. PSYCHIATRIC: Negative. HEMATOLOGIC: Negative. 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 He is not . He does not have any children. He smokes three-quarters of a pack of cigarettes a day. He does have a history of IV drug use. He does not consume alcohol. PHYSICAL EXAMINATION: GENERAL: He is a young gentleman, fully bearded. He is awake, alert, and oriented. HEENT: His pupils are anicteric. LUNGS: Clear to auscultation bilaterally. CARDIAC: Regular rate and rhythm. ABDOMEN: Soft, nontender, and nondistended. RECTAL: Digital rectal exam was attempted; however, the patient is unable to tolerate due to tenderness. He does have a firm area in the right lateral anal canal that extends out to the intersphincteric groove. In the right posterior quadrant, there is a divot that likely either represents a scar or an ulcerative tumor. The indurated area appears intimately involved with at least the internal sphincter, and I cannot determine why the external sphincter is also involved due to my limited exam. EXTREMITIES: He has 2+ femoral pulses bilaterally with no peripheral edema. He has no cervical or inguinal adenopathy appreciated. He has a small amount of chronic woody induration in the groins likely secondary to his prior radiation therapy. 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 He had positive margins on his recent biopsy. I feel this is intimately involved in the anal sphincter and that the sphincter preservation is therefore not an option. He has already undergone 5400 centigray of radiation therapy, and I do not believe that the limited amount of radiation that he could receive would be of any additional benefit for the patient. Chemotherapy is also not indicated as a single modality. I have had a chance to review the CT scan and MRI which show no evidence of metastatic disease. No perirectal or inguinal adenopathy. Mr. Napoles appears to have a localized recurrence of his anal squamous cell carcinoma. He has no evidence of metastatic disease, and therefore, his therapy should be considered for curative intent. He is not a candidate for local excision due to the involvement of the sphincter mechanism. I therefore recommend abdominoperineal resection with permanent colostomy. I have gone over the details of the operation with the patient including the increased risk of perineal wound complications in someone who has already undergone a full-dose radiation therapy to the perineum. I have also had a chance to speak with Dr. Overton to discuss my recommendations. Mr. Napoles has requested that we arrange for proceeding with the surgery here at [facility]. He has requested the surgery be postponed until after the holidays. We will, therefore, plan to do a surgery on Saturday, April 07, 2001. I will arrange to have an enterostomal therapy nurse contact him locally so that he can have preoperative stoma counseling. I also discussed with Mr. Napoles that, at some point, he will need a flexible sigmoidoscopy or colonoscopy due to his hematochezia. This most likely is a result of his anal cancer; however, it would be prudent to evaluate him once he is in a situation that he does not need general anesthesia to overcome his anal pain. A PARQ was performed with the patient, and a consent was obtained. Risks include, but are not limited to, bleeding, infection, colostomy complications, perineal wound complications, and delayed healing, entry to adjacent structures and nerves, and sexual function. The patient will be scheduled for a preadmission test in clinic, and a bowel preparation instruction form and prescription were provided to him today. Dakota Macario M.D. SLAVA / CECE [id number] / [id number] / [id number] / [id number] C: 04/02/2001 norah cc: Obdulio Overton M.D. [address] [facility] [address] Guido Alvarez M.D. [address] [facility] 2 [place] [address]. Ash Ng M.D. [address] [place] [address] David León M.D. [address] [place] [address]. [id number] signed by Interface, Picking Machine Operator In at 12/10/2005 3:11 AM PDTdoc umented in this encounter Plan of Treatment Not on filedocumented as of this encounter Visit Diagnoses Not on filedocumented in this encounter"
--- OUTSIDE RECORDS SUMMARY | ~2018-08-25 | XMS | Encounter Summary ---
Demographics + + + | Address | [address] | | | [place] [address] | + + + | Home Phone | | + + + | Preferred Language | Unknown | + + + | Marital Status | Single | + + + | Catholic Affiliation | CAT | + + [...] Team Providers + +------+ + | Care Fork Lift Mechanic Name | Role | Phone | + [...] | | | | | [address] [place], | | | | | | [place] [address] | | +--------+ + + + + [...] + + + + | PRODUCT | [id number] | | [facility] | | | UNIT [...] | + + + + + | [facility] DEPARTMENT OF | [address] [facility] | [place] [address] | | | PATHOLOGY | [address] | | | + + + + + | [facility] | [address] [facility] | [place] [address] | | | PATHOLOGY | [address] [...] + + + + | PRODUCT | [id number] | | [facility] | | | UNIT [...] + + | [facility] DEPARTMENT OF | [address] | [place], [place] [address] | | | PATHOLOGY | [address] | | | + + + + + | [facility] DEPARTMENT OF | [address] | [place] [address] | | | PATHOLOGY | [address] [...] | + + + + + | [facility] DEPARTMENT OF | [address] | [place] [address] | | | PATHOLOGY | [address] | | | + + + + + | [facility] DEPARTMENT OF | [address] | [place] [address] | | | PATHOLOGY | [address] [...] | + + + + + | [facility] | [address] | [place] [address] | | | PATHOLOGY | [address] | | | + + + + + | [facility] | [address] | [place] [address] | | | PATHOLOGY | [address] | | | + + + + + documented in this encounter Visit Diagnoses Not on filedocumented in this encounter
--- OUTSIDE RECORDS SUMMARY | ~2018-08-25 | XMS | Encounter Summary ---
Demographics + + + | Address | [address] | | | [place] [address] | + + + | Home Phone | | + + + | Preferred Language | Unknown | + + + | Marital Status | Single | + + + | Hindu Affiliation | CAT | + + + | Race | White | + + + | Ethnic Group | Not or | + + + Author + + + | Author | [facility] | + + + | Organization | [facility] | + + + | Address | Unknown | + + + | Phone | Unavailable | + + + Support + + +---------+ + | Name | Relationship | Address | Phone | + + +---------+ + | Mirian Jha | ECON | Unknown | | + + +---------+ + Care Team Providers + +------+ + | Care Cigarette Packer Name | Role | Phone | + [...] as of this encounter Progress Notes Interface, Permaculture Contractor In - 12/10/2005 3:11 AM PDTCLINIC DATE: [...] therapy administered by Dr. Ash Ng in [place]. The inguinal regions were also covered. Mr. Napoles travels around the country for his job spending much of his time in the [place], [place] region. He has never undergone a [...] for proceeding with the surgery here at [facility]. He has requested the surgery be [...] prescription were provided to him today. Dakota aMcario M.D. SLAVA / CECE [id number] / [id number] / [id number] / [id number] C: 04/02/2001 norah cc: Obdulio Overton M.D. [address] [facility] [address] Guido Alvarez M.D. [address] [facility] 2 [place] [address]. Ash Ng M.D. [address] [place] [address] David León M.D. [address] [place] [address]. [id number] signed by Interface, Permaculture Contractor In at 12/10/2005 3:11 AM PDTdoc umented in this encounter Plan of Treatment Not on filedocumented as of this encounter Visit Diagnoses Not on filedocumented in this encounter"
--- OUTSIDE RECORDS SUMMARY | ~2018-08-25 | XMS | Clinical Summary ---
Demographics + + + | Address | [address] | | | [place] [address] | + + + | Home Phone | | + + + | Preferred Language | Unknown | + + + | Marital Status | Single | + + + | Cheondoism Affiliation | CAT | + + + | Race | White | + + + | Ethnic Group | Not or | + + + Author + + + | Author | [facility] | + + + | Organization | [facility] | + + + | Address | Unknown | + + + | Phone | Unavailable | + + + Support + + +---------+ + | Name | Relationship | Address | Phone | + + +---------+ + | Mirian Jha | ECON | Unknown | | + + +---------+ + Care Team Providers + +------+ + | Care Per Diem Rn Name | Role | Phone | + +------+ + | Ramu Trinidad MD | PP | | + +------+ + Source Comments ANDRES is fully live on both [facility] Ambulatory and [facility] InPatient.[facility] Allergies No Known Allergies Medications + + + +---------+------+------+-------+ | Medication | Sig | Dispensed | Refills | Star | End | Statu | | | | | | t | Date | s | | | | | | Date | | | + + + +---------+------+------+-------+ | aspirin EC 81 mg | Take by mouth. | | 0 | 01/0 | | Activ | | oral tablet,delayed | | | | 2/20 | | e | | release (DR/EC) | | | | 13 | | | + + + +---------+------+------+-------+ | atorvastatin 20 mg | Take by mouth. | | 0 | 10/1 | | Activ | | oral tablet | | | | 2/20 | | e | | | | | | 15 | | | + + + +---------+------+------+-------+ | cholecalciferol, | Take 1,000 Units by | | 0 | 12/2 | | Activ | | Vitamin D3, 1,000 | mouth once daily. | | | 1/20 | | e | | unit oral capsule | | | | 10 | | | + + + +---------+------+------+-------+ | traMADol 50 mg | Take 50 mg by mouth | | 0 | 02/0 | | Activ | | oral tablet | once daily as | | | 3/20 | | e | | | needed. | | | 16 | | | + + + +---------+------+------+-------+ | cyclobenzaprine 10 | Take 10 mg by mouth | | 0 | | | Activ | | mg oral tablet | three times daily as | | | | | e | | | needed. Do not use | | | | | | | | longer than 2-3 | | | | | | | | weeks. | | | | | | + + + +---------+------+------+-------+ Active Problems + + + | Problem | Noted Date | + + + | Bilateral carpal tunnel syndrome | 06/07/2015 | + + + | Facet arthropathy | 06/07/2015 | + + + | Balance problem | 06/07/2015 | + + + | Spinal stenosis in cervical region | 06/07/2015 | + + + Social History + +-------+ [...] recent travel history available. | + + Last Filed Vital Signs + + + [...] | | + + + + + Plan of Treatment + + + + + | Health Maintenance | Due Date | Last Done | Comments | + + + + + | Pneumococcal | | | | | vaccination (1 of 1 | 1 | | | | - PPSV23) | | | | + + + + + | Influenza (Flu) | | | | | vaccination (Season | 9 | | | | Ended) | | | | + + + + + Results Not on filefrom Last 3 Months Insurance + +--------+ +--------+ + +------+ | Payer | Benefi | Subscriber | Effect | Phone | Address | Type | | | t Plan | ID | dana | | | | | | / | | Dates | | | | | | Group | | | | | | + +--------+ +--------+ + +------+ | [place] | BLUE | [phone] | | [phone] | [address] | PPO | | | CROSS | | [phone] | [phone] [address] | | | | [place] | | esent | | [place], | | | | L | | | | [place] [address] | | + +--------+ +--------+ + +------+ + +--------+ +--------+ + + | Guarantor Name | Accoun | Relation to | Date | Phone | Billing Address | | | t Type | Patient | of | | | | | | | | | | + +--------+ +--------+ + + | NICOLAS ARANGO | Person | Self [birth year] | [address] | | | al/Fam | | 1955 | [phone] | [place] [address] | | | sophia | | | 5 ([place]) | | + +--------+ +--------+ + +
--- OUTSIDE RECORDS SUMMARY | ~2018-08-25 | XMS | Encounter Summary ---
Demographics + + + | Address | [address] | | | [place] [address] | + + + | Home Phone | | + + + | Preferred Language | Unknown | + + + | Marital Status | Single | + + + | Taoism Affiliation | CAT | + + + [...] Team Providers + +------+ + | Care Housing Installer Name | Role | Phone | + +------+ + PCP | Unavailable | + +------+ + Encounter Details +--------+ + + + + | Date | Type | Department | Care Team | Description | +--------+ + + + + | 05/02/ | Office | | Note, Outpatient | Progress Note | | 2004 | Visit-Trans | | Clinic | | | | cribed [...] as of this encounter Progress Notes Interface, Head Swamper In - 10/20/2004 6:16 PM PDTClinic Date: 05/02/2003 Clinic: [facility] Subjective: Daniel returns for his 2-year followup after abdominoperineal resection for recurrent anal cancer. He continues to do well and reports no new symptoms. He reports that his weight is 197 pounds. He is eating well and is having no problems with his colostomy. He travels around the [facility] and has been followed up most recently in November [address] Familia Ellison in [place]. In addition, Daniel recently underwent a CT scan up in [place], [place], which by the patient's report was negative. Physical Examination General: He looks well and is in good spirits. Abdomen: His midline incision is well healed. His colostomy appliance is intact, and he has no evidence of peristomal hernia. Bilateral inguinal examination demonstrates no adenopathy. He does have a little bit of brawny induration on the left side consistent with remote radiation changes. His perineum is also examined and is soft, completely healed, and there is no evidence of mass or hernia. Assessment and Plan: He is 2-year status post salvage abdominoperineal resection for recurrent anal cancer. He has no evidence of disease. I have told him that we can start seeing him on every 6-month followup for the next several years. I provided him with a business card of my new address over [facility] here in [place]. He may be moving to the [facility] area, and I have gone ahead and provided him with name of the colorectal surgeon there to assist him in followup. Dakota Macario M.D. SLAVA / CECE [id number] / [id number] / [id number] / [id number] cc: Ramu Guidry MD [address] [place] [address] Guido Alvarez [address] [place], [place] [address] [place] [address] Yann Ellison M.D. [facility]. [address] [place], [place] [address]Nudbcqanxhiqgz signed by Interface, Head Swamper In at 10/20/2004 6:16 PM PDTdocumented in this encounter Plan of Treatment Not on filedocumented as of this encounter Visit Diagnoses Not on filedocumented in this encounter"
--- OUTSIDE RECORDS SUMMARY | ~2018-08-25 | XMS | Encounter Summary ---
Demographics + + + | Address | [address] | | | [place] [address] | + + + | Home Phone | | + + + | Preferred Language | Unknown | + + + | Marital Status | Single | + + + | Jehovah'S Witness Affiliation | CAT | + + + | Race | White | + + + | Ethnic Group | Not or | + + + Author + + + | Author | [facility] | + + + | Organization | [facility] | + + + | Address | Unknown | + + + | Phone | Unavailable | + + + Support + + +---------+ + | Name | Relationship | Address | Phone | + + +---------+ + | Mirian Jha | ECON | Unknown | | + + +---------+ + Care Team Providers + +------+ + | Care Adjunct Instructor Chemistry Name | Role | Phone | + +------+ + PCP | Unavailable | + +------+ + Encounter Details +--------+ + + + + | Date | Type | Department | Care Team | Description | +--------+ + + + + | 04/27/ | Office | [facility] | Note, [...] as of this encounter Progress Notes Interface, Tanker Truck Driver In - 12/06/2005 6:12 AM PDTCLINIC DATE: 04/27/2001 [facility] REASON FOR VISIT: Followup of rectal excision. SUBJECTIVE: This patient has been doing generally quite well. He states he is down to ibuprofen and 2 Vicodin per day. His activity level has been pretty limited. He says he spends very little time sitting on his bottom. He has had really no abdominal pain. He describes a sense of emptiness in the rectal space. OBJECTIVE: GENERAL: He looks well. ABDOMEN: His abdominal incision is clean and healing very nicely. The stoma is without erythema. All the sutures are in place. He is passing formed feces without difficulty. His former rectal area incision is clean with a small amount of drainage and rupture over the superior segment. There is no erythema in the majority of it. There is about 1 cm of opening at the superior aspect. ASSESSMENT: Three weeks postoperative rectal resection for a rectal carcinoma, doing well. PLAN: I have set up to be off work until about June 18, 2001. I will continue tapering his pain medicines. Followup in 6 weeks. The patient agreed to talk about the procedure and formation of a stoma with his mother. The patient has been diagnosed with rectal cancer. This patient is seen by myself and Dr. Macario. Mikey Landeros M.D. Dakota Macario M.D. [place] / CECE [id number] / [id number] / [id number] / [id number] signed by Michael, Tanker Truck Driver In at 12/06/2005 6:12 AM PDTShira sanchez, Tanker Truck Driver In - 12/06/2005 6:12 AM PDTCLINIC DATE: 04/27/2001 [facility] REASON FOR VISIT: Followup after abdominal perineal resection for recurrent anal cancer. Daniel doing very well after surgery. He is having some pain around his perineum as expected. He says the drainage and discomfort are markedly diminishing. He is eating well, and his colostomy is functioning well also. PHYSICAL EXAMINATION: GENERAL: He is in his usual jovial spirits. His midline incision is well healed, and his colostomy is pink and everted approximately 1 cm. His perineum is healing up nicely. He is a 2-cm area posteriorly that is slightly opened. There is minimal drainage today. ASSESSMENT: Excellent recovery after abdominal perineal resection for rectal cancer. His final pathology showed stage 1 disease. He and I are both very happy with his results, and I would like to see him back in 6 weeks for a routine followup. I have provided him with an out-of-work sheet for at least 2 more months. He may be able to then go back to light duty work. I mentioned to Daniel that I have another patient with recurrent anal cancer who will require an abdominal perineal resection in the next several weeks. This patient is rather nervous and concerned about the upcoming surgery, and I have asked Daniel if he would be willing to speaking with him about this. Daniel would be happy to and I provided him with the phone number of the patient. Dakota Macario M.D. SLAVA / CECE [id number] / [id number] / [id number] / C: 04/30/2001 sierra cc: Obdulio Overton M.D. [address] [place] [address] Guido Alvarez M.D. [address] [place] [address] David León M.D. [place] [address] [place] [address] [id number] signed by Interface, Tanker Truck Driver In at 12/06/2005 6:12 AM [facility]ed in this encounter Plan of Treatment Not on filedocumented as of this encounter Visit Diagnoses Not on filedocumented in this encounter"
--- OUTSIDE RECORDS SUMMARY | ~2018-08-25 | XMS | Encounter Summary ---
Demographics + + + | Address | [address] | | | [place] [address] | + + + | Home Phone | | + + + | Preferred Language | Unknown | + + + | Marital Status | Single | + + + | Faith Affiliation | CAT | + + + [...] Team Providers + +------+ + | Care Criminal Records Technician Name | Role | Phone | + [...] | Transcriptions | + + | Interface, Blockers Skiver In - 12/10/2005 3:11 AM PDT | | [facility] Diana Jason | | [place], [place] [address] | | [facility]-DSMOPERATION RECORDMed Rec No.: | | [id number] Date: 04/07/2001Name: Nicolas NapolesATTENDING | | SURGEON:Dakota Macario M.D.WORDPRESS DEVELOPER: Edmar Mendez | | TimPREOPERATIVE DIAGNOSIS:Recurrent anal [...] the sites were | | scored with ws07-bpsli needle. The abdomen and perineum were then [...] normal to gross palpation. The | | obwxushsbvyhpip-dr-hxd also appeared normal. There were no overt [...] was matured using a | | three-point [place] fashion to josé luis the stomaapproximately 1 centimeter. The | | colostomy appliance was placed. Thepatient tolerated the procedure well and was | | transferred to recovery instable condition.Dakota Macario M.D.MW:x54D: 04/07/2001T: | | 04/08/[id number]:KATLYN PAZ MD[address] [address]LPTKW | | JANEEN MONTESINOS[address] [facility] [address] | |revealing a grossly normal appearing liver [...] |was brought out and tagged with a [place] clamp. | | | |The lateral window between the colon and the left pericolic gutter was | |closed with a running 3-0 Vicryl suture. The fascia was then closed using | |loop #1 PDS suture followed by 4-0 Vicryl subcuticular on the skin. The | |colostomy was matured using a three-point [place] fashion to josé luis the stoma | |approximately 1 centimeter. The colostomy appliance was placed. The | |patient tolerated the procedure well and was transferred to recovery in | |stable condition. | | | | | | | |Dakota Macario M.D. | | | |MW:x54 | | | | | |[id number] | | | |cc: | | | | | |KATLYN PAZ MD | |[address] [facility] [address] | |[place] [address] | | | | | |PK VERNON MD | |[address] | |[place] [address] | + + documented in this encounter Visit Diagnoses Not on filedocumented in this encounter"
--- OUTSIDE RECORDS SUMMARY | ~2018-08-25 | XMS | Encounter Summary ---
Demographics + + + | Address | [address] | | | [place] [address] | + + + | Home Phone | | + + + | Preferred Language | Unknown | + + + | Marital Status | Single | + + + | Jain Affiliation | CAT | + + + | Race | White | + + + | Ethnic Group | Not or | + + + Author + + + | Author | [facility] | + + + | Organization | [facility] | + + + | Address | Unknown | + + + | Phone | Unavailable | + + + Support + + +---------+ + | Name | Relationship | Address | Phone | + + +---------+ + | Mirian Jha | ECON | Unknown | | + + +---------+ + Care Team Providers + +------+ + | Care Demonstrator Sewing Techniques Name | Role | Phone | + +------+ + PCP | Unavailable | + +------+ + Encounter Details +--------+ + + + + | Date | Type | Department | Care Team | Description | +--------+ + + + + | 04/08/ | Documentati | Anesthesiology | Unknown . | | | 2001 | on | [address] | | | | | | [facility] | | | | | | [place], [place] | | | | | | [address] | | | +--------+ + + + [...] + + documented in this encounter Results ANESTHESIA/SEDATION (04/08/2001 11:17 AM PST) + + + | Narrative | Performed At | + + + | Ordered by an unspecified provider. | | + + + + + | Transcriptions | + + | 04/08/2001 11:17 AM [facility] Anesthesia PostOp Report | | | | Patient: NICOLAS ARANGO Med Rec: [id number] Sex M Bdate: 1955 | | Date/Time Data | | Entered Into [facility] | | Anesth PostOp | | Surgery Date [id number] 04/08/01 11:17 | | Anesthesiologist ENZO AGUILAR 04/08/01 11:17 | | Resident Anesthesiolog KAYDEN SOTO 04/08/01 11:17 | | | + + documented in this encounter Visit Diagnoses Not on filedocumented in this encounter"
--- OUTSIDE RECORDS SUMMARY | ~2018-08-25 | XMS | Clinical Summary ---
Demographics + + + | Address | [address] | | | [place] [address] | + + + | Home Phone | | + + + | Preferred Language | Unknown | + + + | Marital Status | Single | + + + | Hindu Affiliation | 1041 | + + + | Race | Unknown | + + + | Ethnic Group | Unknown | + + + Author + + + | Author | [facility] | | | and [place] | + + + | Organization | [facility] | | | and [place] | + + + | Address | Unknown | + + + | Phone | Unavailable | + + + Support + + + + + | Name | Relationship | Address | Phone | + + + + + | Kami Napoles | ECON | [address] | | | | | [place], [place] | | | | | [address] | | + + + + + | Mirian Jha | ECON | [address] | | | | | [place] | | | | | [address] | | + + + + + Care Team Providers + +------+ + | Care Cytologist Name | Role | Phone | + +------+ + | Rebekah Mtz MD | PP | | + +------+ + Allergies No Known Allergies Medications + + + +---------+------+------+-------+ | Medication | Sig | Dispensed | Refills | Star | End | Statu | | | | | | t | Date | s | | | | | | Date | | | + + + +---------+------+------+-------+ | cholecalciferol | Take 1,000 Units by | | 0 | 12/2 | | Activ | | (VITAMIN D-3) 1000 | mouth Daily. | | | 1/20 | | e | | UNITS TABS | | | | 10 | | | + + + +---------+------+------+-------+ | aspirin 81 mg EC | Take by mouth. | | 0 | 01/0 | | Activ | | tablet | | | | 2/20 | | e | | | | | | 13 | | | + + + +---------+------+------+-------+ | atorvaSTATin | TAKE 1 TABLET BY | 90 | 3 | 10/1 | | Activ | | (LIPITOR) 20 mg | MOUTH EVERY NIGHT | tablet | | 0/20 | | e | | tablet | | | | 18 | | | + + + +---------+------+------+-------+ Active Problems + + + | Problem | Noted Date | + + + | Osteoarthritis of right knee, unspecified osteoarthritis type | 09/10/2016 | + + + | DDD (degenerative disc disease), cervical | 05/06/2016 | + + + | History of rectal cancer | 01/03/2016 | + + + | Bilateral carpal tunnel syndrome | 06/15/2015 | + + + | Imbalance | 06/07/2015 | + + + | Arthropathy of facet joint | 06/07/2015 | + + + | Cervical spinal stenosis | 04/26/2015 | + + + | Anal carcinoma | 01/10/2015 | + + + | Cervical radiculopathy | 01/04/2014 | + + + | Preventative health care | 03/20/2012 | + + + + + | Overview: CRSC: | | | | Next due: | | | | PSA: Date: Result: | | 02/26/2011 0.18 | | | + + + + + | HYDROCELE | 10/17/2011 | + + + | BENIGN PROSTATIC HYPERTROPHY, WITH OBSTRUCTION | 02/26/2011 | + + + | FATIGUE | 10/10/2010 | + + + | FREQUENCY, URINARY | 10/10/2010 | + + + | HYPERKERATOSIS | 07/25/2010 | + + + | DYSPLASTIC NEVUS | 07/17/2010 | + + + | Unspecified vitamin D deficiency | | + + + + + | Overview: ICD-10 Record update | + + + +---+ | Hyperlipidemia | | + +---+ | SCROTAL MASS, LEFT | | + +---+ | ENCYSTED HYDROCELE, LEFT | | + +---+ Resolved Problems + + + + | Problem | Noted | Resolved | | | Date | Date | + + + + | Bilateral otitis media with effusion | 09/27/19 | | | | 17 | 8 | + + + + | Acute serous otitis media, right ear | 06/27/19 | | | | 17 | 8 | + + + + | Cervical strain | 02/11/20 | | | | 13 | 8 | + + + + | Strain of thoracic region | 02/11/20 | | | | 13 | 8 | + + + + | Hepatitis C | 10/17/19 | | | | 12 | 8 | + + + + | Alcoholism | | | | | | 8 | + + + + Immunizations + + + + | Name | Dates Previously Given | Next Due | + + + + | TDAP, (ADOL/ADULT) | 10/17/2011 | | + + + + Family History + + + + + | Medical History | Relation | Name | Comments | + + + + + | COPD | Father | | | + + + + + | Emphysema | Father | | | + + + + + | Heart attack | Father | | | + + + + + | High blood pressure | Father | | | + + + + + | Cancer | Mother | Rei | Melanoma | | | | Abhijeet | | + + + + + | Breast cancer | Sister | | | + + + + + | Diabetes | Sister | | | + + + + + + + + + + | Relation | Name | Status | Comments | + + + + + | Father | | | | + + + + + | Mother | Rei | Alive | | | | Abhijeet | | | + + + + + | Sister | | Alive | | + + + + + | Sister | | Alive | | + + + + + Social History + + + +--------+ + | Tobacco Use | Types | Packs/Day | Years | Date | | | | | Used | | + + + +--------+ + | Former Smoker | Cigarettes, Cigars | 1 | 30 | Quit: 03/24/1999 | + + + +--------+ + + +------+---+ + | Smokeless Tobacco: | Chew | | Quit: | | Former User | | | 09/21/18 | | | | | 69 | + +------+---+ + + + | Comments: Occasional cigar, smokes cannabis 10 joints a day | + + + + +---------+ + | Alcohol Use | Drinks/We | oz/Week | Comments | | | ek | | | + + +---------+ + | No | 0 | 0.0 | quit drinking in 2000 | | | Standard | | | | | drinks or | | | | | | | | | | equivalen | | | | | t | | | + + +---------+ + [...] Filed Vital Signs + + + + | Vital Sign | Reading | Time Taken | + + + + | Blood Pressure | 116/64 | 01/29/2018925 PST | + + + + | Pulse | 78 | 01/29/2018925 PST | + + + + | Temperature | 36.1 C (97 F) | 01/29/2018925 PST | + + + + | Respiratory Rate | 18 | 01/29/2018925 PST | + + + + | Oxygen Saturation | 97% | 01/29/2018925 PST | + + + + | Inhaled Oxygen | - | - | | Concentration | | | + + + + | Weight | 74.2 kg (163 lb 9.3 | 01/29/2018925 PST | | | oz) | | + + + + | Height | 180.3 cm (5' 11") | 10/06/2017929 PDT | + + + + | Body Mass Index | 22.81 | 10/06/2017929 PDT | + + + + Plan of Treatment + + + + + | Health Maintenance | Due Date | Last Done | Comments | + + + + + | Vaccine: | | 10/17/2011 | | | Dtap/Tdap/Td (2 - | 2 | | | | Td) | | | | + + + + + | Vaccine: Zoster (1 | | | Postponed from | | of 2) | 3 | | 2004 (Patient | | | | | Declined) | + + + + + | Vaccine: | | | Postponed from | | Pneumococcal 19-64 | 3 | | 1973 (Patient | | Highest Risk (1 of 3 | | | Declined) | | - PCV13) | | | | + + + + + | Hepatitis C | Completed | 09/25/2017, 01/31/2016, | | | Screening | | 01/31/2016, Additional history | | | | | exists | | + + + + + Implants + +--------+--------+ +--------+--------+--------+ | Implanted | Type | Area | Manufacture | Device | Shelf | Model | | | | | r | | Expira | / | | | | | | Identi | tion | Serial | | | | | | fier | Date | / Lot | + +--------+--------+ +--------+--------+--------+ | Cage Emily Ptc [id number] - | Generi | Anteri | [employer] - | | 10/12/ | [id number] | | [id number]: Qty: 1 on | c | or: | MEDT | | 2023 | 4 / | | 01/30/2016 by Steve Romano | | Neck | | | | /15CE | | A, DO | | | | | | | + +--------+--------+ +--------+--------+--------+ | Cage Emily Ptc [id number] - | Generi | Anteri | [employer] - | | 10/12/ | [id number] | | [id number]: Qty: 1 on | c | or: | MEDT | | 2023 | 4 / | | 01/30/2016 by Steve Romano | | Neck | | | | /15CE | | A, DO | | | | | | | + +--------+--------+ +--------+--------+--------+ | Cage Emily Ptc [id number] - | Generi | N/A: | [employer] - | | 08/03/ | [id number] | | [id number]: Qty: 1 on | c | Spine | MEDT | | 2023 | 4 / | | 01/30/2016 by Steve Romano | | Cervic | | | | /[id number] | | A, DO | | al | | | | | + +--------+--------+ +--------+--------+--------+ | Cage Emily Ptc [id number] - | Generi | N/A: | [employer] - | | 10/12/ | [id number] | | [id number]: Qty: 1 on | c | Spine | MEDT | | 4 | 4 / | | 01/30/2016 by Steve Romano | | Cervic | | | | /15CE | | DO Frankie | | al | | | | | + +--------+--------+ +--------+--------+--------+ | Putty Bone Dbm Grftn 2.5cc - | Graft | Anteri | [employer] - | | 09/03/ | [id number] | | [id number]: Qty: 1 | | or: | MEDT | | 2019 | | | on 01/30/2016 by Juan Antonio, | | Neck | | | | /[id number] | | Steve David DO | | | | | | 6-076 | | | | | | | | / | + +--------+--------+ +--------+--------+--------+ | Plate Ant [place] Cerv | Plate | N/A: | [employer] - | | | [id number] | | 82.5mm - [id number]: | | Spine | MEDT | | | 2 / / | | Qty: 1 on 01/30/2016 by | | Cervic | | | | | | Juan Antonio, Steve A, DO | | al | | | | | + +--------+--------+ +--------+--------+--------+ | Screw Slf-Drl V/A 4.0x17mm - | Screw | N/A: | SOFAMOR | | | [id number] | | [id number]: Qty: 8 on | | Spine | DANEK - DIV | | | | | 01/30/2016 by Steve Romano | | Cervic | [employer] | | | | | A, DO | | al | - [id number] | | | | + +--------+--------+ +--------+--------+--------+ | Screw Samson Slf-Drl 4.0x19mm - | Screw | N/A: | [employer] - | | | [id number] | | [id number]: Qty: 2 on | | Neck | MEDT | | | | | 01/30/2016 by Steve Romano | | | | | | | | A, DO | | | | | | | + +--------+--------+ +--------+--------+--------+ Results Not on filefrom Last 3 Months Insurance +-------+--------+ +--------+-------+---------+------+ | Payer | Benefi | Subscriber | Effect | Phone | Address | Type | | | t Plan | ID | dana | | | | | | / | | Dates | | | | | | Group | | | | | | +-------+--------+ +--------+-------+---------+------+ | BCBS | BCBS | [id number] | | | | PPO | | | [place] | | 995-Pr | | | | | | L FEP | | esent | | | | +-------+--------+ +--------+-------+---------+------+ + +--------+ +--------+ + + | Guarantor Name | Accoun | Relation to | Date | Phone | Billing Address | | | t Type | Patient | of | | | | | | | | | | + +--------+ +--------+ + + | Nicolas Napoles | Person | Self [birth year] | [address] | | [address]ido | al/Fam | | 1956 | [phone] | [place] [address] | | | sophia | | | 6 (Home) | | + +--------+ +--------+ + + | Nicolas Napoles | Worker | Self [birth year] | [address] | | [address] | s Comp | | 5 | [phone] | [place] [address] | | | | | | 6 (Home) | | | | | | | [phone] | | | | | | | 5 (Work) | | + +--------+ +--------+ + + Advance Directives Patient has advance care planning documents, and code status on file. For more information, please contact:[facility] [place] [address] + + + + + | Code Status | Date | Date | Comments | | | Activated | Inactivated | | + + + + + | Full Code | 01/30/2016 | 02/01/2016 | | | | 20:34 | 16:16 | | + + + + +
--- OUTSIDE RECORDS SUMMARY | ~2018-08-25 | XMS | Clinical Summary ---
Demographics + + + | Address | [address] | | | [place] [address] | + + + | Home Phone | | + + + | Preferred Language | Unknown | + + + | Marital Status | Single | + + + | Scientologist Affiliation | CAT | + + + [...] Team Providers + +------+ + | Care Lamp Inspector Name | Role | Phone | + +------+ + | Ramu Trinidad MD | PP | | + +------+ + Source Comments ANDRES is fully live on both [facility] and [facility] InPatient.[facility] Allergies No Known Allergies Medications + + [...] CROSS | | [phone] | [address] | [address] | | | | [place] | | esent | | [place], | | | | L | | | | [place] [address] | | + +--------+ +--------+ + +------+ [...] | 1955 | [phone] | [place] [address] | | | sophia | | | 6 ([place]) | | + +--------+ +--------+ + +
--- OUTSIDE RECORDS SUMMARY | ~2018-08-25 | XMS | Encounter Summary ---
Demographics + + + | Address | [address] | | | [place] [address] | + + + | Home Phone | | + + + | Preferred Language | Unknown | + + + | Marital Status | Single | + + + | Sikh Affiliation | CAT | + + + [...] Team Providers + +------+ + | Care High Heel Builder Name | Role | Phone | + [...] as of this encounter Progress Notes Interface, Talent Development Specialist In - 10/20/2004 6:16 PM PDTClinic Date: 05/02/2003 Clinic: [facility] Subjective: Daniel returns for his 2-year followup after abdominoperineal resection for recurrent anal cancer. He continues to do well and reports no new symptoms. He reports that his weight is 197 pounds. He is eating well and is having no problems with his colostomy. He travels around the [facility] and has been followed up most recently in November [address] Familia Ellison in [place]. In addition, Daniel recently underwent a CT scan up in [place], [place], which by the patient's report was [...] business card of my new address over [facility] here in [place]. He may be moving to the [facility] area, and I have gone ahead and provided him with name of the colorectal surgeon there to assist him in followup. Dakota Macario M.D. SLAVA / CECE [id number] / [id number] / [id number] / [id number] cc: Ramu Guidry MD [address] [place] [address] [address] Guido Alvarez [address] [place], [place] [address] [place] [address] Yann Ellison M.D. [facility]. [address] [place], [place] [address]Rjoljqchqdxadn signed by Interface, Talent Development Specialist In at 10/20/2004 6:16 PM PDTdocumented in this encounter Plan of Treatment Not on filedocumented as of this encounter Visit Diagnoses Not on filedocumented in this encounter"
--- OUTSIDE RECORDS SUMMARY | ~2018-08-25 | XMS | Clinical Summary ---
Demographics + + + | Address | [address] | | | [place] [address] | + + + | Home Phone | | + + + | Preferred Language | Unknown | + + + | Marital Status | Single | + + + | Baptism Affiliation | Unknown | + + + | Race | Unknown | + + + | Ethnic Group | Unknown | + + + Author + + + | Author | [facility] | + + + | Organization | [facility] | + + + | Address | Unknown | + + + | Phone | Unavailable | + + + Support + + +---------+ + | Name | Relationship | Address | Phone | + + +---------+ + | Rei Jha | ECON | Unknown | | + + +---------+ + Care Team Providers + +------+ + | Care Video Software Engineer Name | Role | Phone | + +------+ + | Rebekah Mtz MD | PP | | + +------+ + Allergies No Known Allergies Current Medications + + +--------+---------+------+------+-------+ | Prescription | Sig. | Disp. | Refills | Star | End | Statu | | | | | | t | Date | s | | | | | | Date | | | + + +--------+---------+------+------+-------+ | aspirin EC 81 MG | Take by mouth | | | 01/0 | | Activ | | EC tablet | daily. | | | 2/20 | | e | | | | | | 13 | | | + + +--------+---------+------+------+-------+ | atorvastatin | TAKE 1 TABLET BY | | | 10/1 | | Activ | | (LIPITOR) 20 MG | MOUTH EVERY NIGHT | | | 0/20 | | e | | tablet | | | | 18 | | | + + +--------+---------+------+------+-------+ | Cholecalciferol | Take 1,000 Units by | | | 12/2 | | Activ | | (D3-1000) 1000 units | mouth. | | | 1/20 | | e | | capsule | | | | 10 | | | + + +--------+---------+------+------+-------+ | | Take 1-2 tablets by | 15 | 0 | 01/1 | | Activ | | HYDROcodone-acetamin | mouth every 4 (four) | tablet | | 4/20 | | e | | ophen (NORCO) 5-325 | hours as needed for | | | 19 | | | | MG per tablet | Pain. | | | | | | + + +--------+---------+------+------+-------+ Active Problems + + + | Problem | Noted Date | + + + | Right carpal tunnel syndrome | 03/31/2018 | + + + + + | Overview: Added automatically from request for surgery [id number] | + + Immunizations +------+ + + | Name | Dates Previously Given | Next Due | +------+ + + | Tdap | 10/17/2011 | | +------+ + + Family History + + +------+ + | Medical History | Relation | Name | Comments | + + +------+ + | Cancer | Mother | | | + + +------+ + | Hypertension | Mother | | | + + +------+ + | Cancer | Sister | | | + + +------+ + | Hypertension | Sister | | | + + +------+ + + +------+ + + | Relation | Name | Status | Comments | + +------+ + + | Father | | | | + +------+ + + | Mother | | Alive | | + +------+ + + | Sister | | Alive | | + +------+ + + Social History + +-------+ +--------+ + | Tobacco Use | Types | Packs/Day | Years | Date | | | | | Used | | + +-------+ +--------+ + | Former Smoker | | 1 | 30 | Quit: 1999 | + +-------+ +--------+ + + +---+---+---+ | Smokeless Tobacco: | | | | | Never Used | | | | + +---+---+---+ + + +---------+ + | Alcohol Use | Drinks/We | oz/Week | Comments | | | ek | | | + + +---------+ + | No | | | | + + +---------+ + + + + | Sex Assigned at | Date Recorded | | | | + + + | Not on file | | + + + Last Filed Vital Signs + + + + | Vital Sign | Reading | Time Taken | + + + + | Blood Pressure | 128/66 | 04/21/2018 10:54 AM PST | + + + + | Pulse | 78 | 04/06/2018 8:01 AM PST | + + + + | Temperature | 36.2 C (97.2 F) | 04/06/2018 7:50 AM PST | + + + + | Respiratory Rate | 16 | 04/21/2018 10:54 AM PST | + + + + | Oxygen Saturation | 93% | 04/06/2018 8:01 AM PST | + + + + | Inhaled Oxygen | - | - | | Concentration | | | + + + + | Weight | 78.9 kg (174 lb) | 04/21/2018 10:54 AM PST | + + + + | Height | 180.3 cm (5' 11") | 04/21/2018 10:54 AM PST | + + + + | Body Mass Index | 24.27 | 04/21/2018 10:54 AM PST | + + + + Plan of Treatment + + + + + | Health Maintenance | Due Date | Last Done | Comments | + + + + + | Colon Cancer | | | | | Screening | 5 | | | | (Colonoscopy) | | | | + + + + + | Vaccine: Zoster (1 | | | | | of 2) | 5 | | | + + + + + | Vaccine: Influenza | | | | | (Season Ended) | 9 | | | + + + + + | Vaccine: | | 10/17/2011 | | | Dtap/Tdap/Td (2 - | 2 | | | | Td) | | | | + + + + + Results Not on filefrom Last 3 Months Insurance +---------+--------+ +------+-------+ + | Payer | Benefi | Subscriber | Type | Phone | Address | | | t Plan | ID | | | | | | / | | | | | | | Group | | | | | +---------+--------+ +------+-------+ + | PREMERA | PREMER | [id number] | | | [address] [address] | | | [place] | | | | [place] | | | [place] | | | | [phone] | | | FED | | | | | | | PPO | | | | | +---------+--------+ +------+-------+ + + +--------+ +--------+ + + | Guarantor Name | Accoun | Relation to | Date | Phone | Billing Address | | | t Type | Patient | of | | | | | | | | | | + +--------+ +--------+ + + | NICOLAS ARANGO | Person | Self | [birth year] | Home: | [address] | | [place] | karishma/Arvin | | [phone] [place] [address] | | | sophia | | | [phone] | | + +--------+ +--------+ + +
--- OUTSIDE RECORDS SUMMARY | ~2018-08-25 | XMS | Encounter Summary ---
Demographics + + + | Address | [address] | | | [place] [address] | + + + | Home Phone [...] Team Providers + +------+ + | Care Autoclave Operator Name | Role | Phone | [...] as of this encounter Discharge Summaries Interface, Construction Carpenter In - 12/10/2005 3:11 AM PDT [place] [address] [place], [place] [address] [facility] MEDICAL SUMMARY OF HOSPITALIZATION Med Rec No: [...] MD [address] [place] [address] KATLYN PAZ MD [address] [facility] [address] [place] [address] ANNABEL HAN MD [address] [facility] [address] RENEE VALADEZ MD [address] [facility] [address] cc: UNKNOWN [id number] signed by Interface, Construction Carpenter In at 12/10/2005 3:11 AM [facility]ed in this encounter Plan of Treatment Not on filedocumented as of this encounter Visit Diagnoses Not on filedocumented in this encounter"
--- OUTSIDE RECORDS SUMMARY | ~2018-08-25 | XMS | Encounter Summary ---
Demographics + + + | Address | [address] | | | [place] [address] | + + + | Home Phone [...] Team Providers + +------+ + | Care Api Developer Name | Role | Phone | + [...] as of this encounter Progress Notes Michael, Acetylene Plant Operator In - 11/29/2005 1:12 AM PDTCLINIC DATE: [...] followup. Dakota Macario M.D. SLAVA / CECE [id number] / [id number] / [id number] / [id number] C: 07/02/2001 norah cc: Obdulio Overton M.D. [address] [facility] [place] [address] Guido Alvarez M.D. [address] [facility] [place] [address] [id number] signed by Michael, Acetylene Plant Operator In at 11/29/2005 1:12 AM [facility] umented in this encounter Plan of Treatment Not on filedocumented as of this encounter Visit Diagnoses Not on filedocumented in this encounter"
--- OUTSIDE RECORDS SUMMARY | ~2018-08-25 | XMS | Clinical Summary ---
Demographics + + + | Address | [address] | | | [place] [address] | + + + | Home Phone | | + + + | Preferred Language | Unknown | + + + | Marital Status | Single | + + + | Roman Catholic Affiliation | 1041 | + + + | Race | Unknown | + + + | Ethnic Group | Unknown | + + + Author + + + | Author | [facility] | | | and Rejiana | + + + | Organization | [facility] | | | and [place] [...] [place], [place] | | | | | [address] | | + + + + + | Mirian Jha | ECON | [address] | | | | | [place] | | | | | [address] | | + + + + + Care Team Providers + +------+ + | Care Supervisor Furnace Process Name | Role | Phone | + [...] + +--------+--------+ +--------+--------+--------+ | Cage Emily Ptc [id number] - | Generi | Anteri | [employer]IC - | | 10/12/ | [id number] | | [id number]: Qty: 1 on | c | or: | MEDT | | 2023 | 4 / | | 01/30/2016 by Steve Romano | | Neck | | | | /15CE | | A, DO | | | | | | | + +--------+--------+ +--------+--------+--------+ | Cage Emily Ptc [id number] - | Generi | Anteri | [employer] - | | 10/12/ | [id number] | | [id number]: Qty: 1 on | c | or: | MEDT | | 2023 | 4 / | | 01/30/2016 by Steve Romano | | Neck | | | | /15CE | | A, DO | | | | | | | + +--------+--------+ +--------+--------+--------+ | Cage Emily Ptc [id number] - | Generi | N/A: | [employer] - | | 08/03/ | [id number] | | [id number]: Qty: 1 on | c | Spine | MEDT | | 2023 | 4 / | | 01/30/2016 by Steve Romano | | Cervic | | | | /[id number] | | A, DO | | al | | | | | + +--------+--------+ +--------+--------+--------+ | Cage Emily Ptc [id number] - | Generi | N/A: | [employer] - | | 10/12/ | [id number] | | [id number]: Qty: 1 on | c | Spine | MEDT | | 4 | 4 / | | 01/30/2016 by Steve Romano | | Cervic | | | | /15CE | | DO Frankie | | al | | | | | + +--------+--------+ +--------+--------+--------+ | Putty Bone Dbm Grftn 2.5cc - | Graft | Anteri | [employer] - | | 09/03/ | [id number] | | [id number]: Qty: 1 | | or: | MEDT | | 2019 | | | on 01/30/2016 by Juan Antonio, | | Neck | | | | /[id number] | | Steve David DO | | | | | | 6-076 | | | | | | | | / | + +--------+--------+ +--------+--------+--------+ | Plate Ant [place] Cerv | Plate | N/A: | [employer] - | | | [id number] | | 82.5mm - [id number]: | | Spine | MEDT | | | 2 / / | | Qty: 1 on 01/30/2016 by | | Cervic | | | | | | Juan Antonio, Steve A, DO | | al | | | | | + +--------+--------+ +--------+--------+--------+ | Screw Slf-Drl V/A 4.0x17mm - | Screw | N/A: | SOFAMOR | | | [id number] | | [id number]: Qty: 8 on | | Spine | DANEK - DIV | | | | | 01/30/2016 by Steve Romano | | Cervic | [employer] | | | | | A, DO | | al | - SFDK | | | | + +--------+--------+ +--------+--------+--------+ | Screw Samson Slf-Drl 4.0x19mm - | Screw | N/A: | [employer] - | | | [id number] | | [id number]: Qty: 2 on | | Neck | [...] +-------+--------+ +--------+-------+---------+------+ | BCBS | BCBS | [id number] | | | | PPO | | [...] | 1956 | [phone] | [place] [address] | | | sophia | | | 6 (Home) | | + +--------+ +--------+ + + | Nicolas Napoles | Worker | Self | [birth year] | | [address] | | Guido | s Comp | | 5 | [phone] | [place] [address] | | | | | | 6 (Home) | | | | | | | [phone] | | | | | | | 5 (Work) | | + +--------+ +--------+ + + Advance Directives Patient has advance care planning documents, and code status on file. For more information, please contact:[facility] [place] [address] + + + + + | Code Status | Date | Date | Comments | | | Activated | Inactivated | | + + + + + | Full Code | 01/30/2016 | 02/01/2016 | | | | 20:34 | 16:16 | | + + + + +
--- OUTSIDE RECORDS SUMMARY | ~2018-08-25 | XMS | Encounter Summary ---
Demographics + + + | Address | [address] | | | [place] [address] | + + + | Home Phone | | + + + | Preferred Language | Unknown | + + + | Marital Status | Single | + + + | Latter-Day Affiliation | CAT | + + + | Race | White | + + + | Ethnic Group | Not or | + + + Author + + + | Author | [facility] | + + + | Organization | [facility] | + + + | Address | Unknown | + + + | Phone | Unavailable | + + + Support + + +---------+ + | Name | Relationship | Address | Phone | + + +---------+ + | Mirian Jha | ECON | Unknown | | + + +---------+ + Care Team Providers + +------+ + | Care Equipment Maintenance Tech Name | Role | Phone | + [...] W | | | | ON | [facility] 4th Floor [address] | [facility] | | | | | [address] | Road [place], [place] | | | | | Code: [address] | [address] | | | | | for Health and | | | | | | Healing,4th Floor | | | | | | [place], [place] | | | | | | [address] | | | | | | [phone] | | | +--------+ + + + [...]
--- OUTSIDE RECORDS SUMMARY | ~2018-08-25 | XMS | Encounter Summary ---
Demographics + + + | Address | [address] | | | [place] [address] | + + + | Home Phone [...] + + + | Author | [facility] | + + + | Organization | [facility] | + + + | Address | Unknown | + + + | Phone | Unavailable | + + + Support + + +---------+ + | Name | Relationship | Address | Phone | + + +---------+ + | Mirian Jha | ECON | Unknown | | + + +---------+ + Care Team Providers + +------+ + | Care Paper Cone Maker Name | Role | Phone | + [...] as of this encounter Progress Notes Interface, Plant Safety Leader In - 12/06/2005 6:12 AM PDTCLINIC DATE: [...] Macario. Mikey Landeros M.D. Dakota Macario M.D. MD / CECE [id number] / [id number] / [id number] / [id number] signed by Michael, Plant Safety Leader In at 12/06/2005 6:12 AM PDTShira sanchez, Plant Safety Leader In - 12/06/2005 6:12 AM PDTCLINIC DATE: [...] patient. Dakota Macario M.D. SLAVA / CECE [id number] / [id number] / [id number] / C: 04/30/2001 sierra cc: Obdulio Overton M.D. [address] [facility] [place] [address] Guido Alvarez M.D. [address] [place] [address] David León M.D. [address] [place] [address] [id number] signed by Interface, Plant Safety Leader In at 12/06/2005 6:12 AM [facility] this encounter Plan of Treatment Not on filedocumented as of this encounter Visit Diagnoses Not on filedocumented in this encounter"
--- OUTSIDE RECORDS SUMMARY | ~2018-08-25 | XMS | Clinical Summary ---
Demographics + + + | Address | [address] | | | [place] [address] | + + + | Home Phone | | + + + | Preferred Language | Unknown | + + + | Marital Status | Single | + + + | Yarsanism Affiliation | Unknown | + + + | Race | Unknown | + + + | Ethnic Group | Unknown | + + + Author + + + | Author | [facility] | + + + | Organization | [facility] | + + + | Address | Unknown | + + + | Phone | Unavailable | + + + Support + + +---------+ + | Name | Relationship | Address | Phone | + + +---------+ + | Rei Jha | ECON | Unknown | | + + +---------+ + Care Team Providers + +------+ + | Care Electrical Lineman Name | Role | Phone | + [...] Overview: Added automatically from request for surgery [id number] | + + Immunizations +------+ + + [...] +------+-------+ + | PREMERA | PREMER | [id number] | | | [address] [address] | | | [place] | | | | [place] | | | [place] | | | | [phone] | | | FED | | | [...] | [phone] | [place] [address] | | | sophia | | | [phone] | | + +--------+ +--------+ + +
--- OUTSIDE RECORDS SUMMARY | ~2018-08-25 | XMS | Encounter Summary ---
Demographics + + + | Address | [address] | | | [place] [address] | + + + | Home Phone | | + + + | Preferred Language | Unknown | + + + | Marital Status | Single | + + + | Yazidi Affiliation | CAT | + + + [...] Team Providers + +------+ + | Care Class C Driver Name | Role | Phone | + +------+ + PCP | Unavailable | + +------+ + Encounter Details +--------+ + + + + | Date | Type | Department | Care Team | Description | +--------+ + + + + | 02/22/ | Results | | Other, Faculty | | | 2002 | Only | | [phone] | | +--------+ + + + + [...] | + + + + + | [facility] | [address] [facility] | [place] [address] | | | PATHOLOGY | [address] | | | + + + + + | [facility] | [address] [place] [address] | [place] [address] | | | PATHOLOGY | [address] [...] + + + | [facility] | [address] [address] | [place] [address] | | | PATHOLOGY | [address] | | | + + + + + | [facility] | [address] [facility] [facility] | [place] [address] | | | PATHOLOGY | [address] | | | + + + + + HEP C QUANT (02/22/2003 2:25 PM PST) + + + + + + | Component | Value | Ref Range | Performed | Pathologist | | | | | At | Signature | + + + + + + | HEP C PCR, | < [id number] | IU/mL | | | | QUANT [...] | | | | | determined bythe [facility] | | | | | | [...] Act | | | | | | [id number]. The [facility] DNA | | | | | | Diagnostic Laboratory is | | | | | | a fully licensed | | | | | | and/oraccredited | | | | | | clinical laboratory | | | | | | under CLIA, CAP, and the | | | | | | State of [place]. | | | | + + + [...] | + + + | Ordered by LAAZRO MCDANIELS | | + + + + + + + + | Performing | Address | City/State/Zipcode | Phone Number | | Organization | | | | + + + + + | [facility] | [facility] | [place] [address] | | | GENETICS LABS | [address] | | | | | [address] | | | + + + + + documented in this encounter Visit Diagnoses Not on filedocumented in this encounter"
--- OUTSIDE RECORDS SUMMARY | ~2018-08-25 | XMS | Encounter Summary ---
Demographics + + + | Address | [address] | | | [place] [address] | + + + | Home Phone | | + + + | Preferred Language | Unknown | + + + | Marital Status | Single | + + + | Adventism Affiliation | CAT | + + + [...] Team Providers + +------+ + | Care Commercial Truck Driver Name | Role | Phone | + +------+ + PCP | Unavailable | + +------+ + Encounter Details +--------+ + + + + | Date | Type | Department | Care Team | Description | +--------+ + + + + | 02/17/ | Results | | Other, Faculty | | | 2001 | Only | | [phone] | | +--------+ + + + + [...] + | ALT, PLASMA | Routin | 02/17/2002 | | Results for this | | | e | 1:15 PM | | procedure are in the | | | | PST | | results section. | + +--------+ + + + | AST, PLASMA | Routin | 02/17/2002 | | Results for this | | | e | 1:15 PM | | procedure are in the | | | | PST | | results section. | + +--------+ + + + | ALKALINE | Routin | 02/17/2002 | | Results for this | | PHOSPHATASE, PLASMA | e | 1:15 PM | | procedure are in the | | | | PST | | results section. | + +--------+ + + + | BILIRUBIN TOTAL | Routin | 02/17/2002 | | Results for this | | | e | 1:15 PM | | procedure are in the | | | | PST | | results section. | + +--------+ + + + documented in this encounter Results ALT (02/17/2002 1:15 PM PST) + +---------+ + + + | Component | Value | Ref Range | Performed | Pathologist | | | | | At | Signature | + +---------+ + + + | ALT (SGPT) | 160 (H) | 13 - 48 U/L | [facility] | | | | | | DEPARTMENT | | | | | | OF | | | | | | PATHOLOGY | | + +---------+ + + + + + | Specimen | + + | | + + + + + | Narrative | Performed At | + + + | Ordered by UNKNOWN DOCTOR | [facility] | | | DEPARTMENT OF | | | PATHOLOGY | + + + + + + + + | Performing | Address | City/State/Zipcode | Phone Number | | Organization | | | | + + + + + | [facility] | [address] | [place] [address] | | | PATHOLOGY | [address] | | | + + + + + | [facility] | [address] | [place] [address] | | | PATHOLOGY | [address] | | | + + + + + AST (02/17/2002 1:15 PM PST) + +--------+ + + + | Component | Value | Ref Range | Performed | Pathologist | | | | | At | Signature | + +--------+ + + + | AST(SGOT) | 69 (H) | 15 - 41 U/L | [facility] | | | | | | DEPARTMENT | | | | | | OF | | | | | | PATHOLOGY | | + +--------+ + + + + + | Specimen | + + | | + + + + + | Narrative | Performed At | + + + | Ordered by UNKNOWN DOCTOR | [facility] | | | DEPARTMENT OF | | | PATHOLOGY | + + + + + + + + | Performing | Address | City/State/Zipcode | Phone Number | | Organization | | | | + + + + + | [facility] DEPARTMENT OF | [address] | [place] [address] | | | PATHOLOGY | [address] | | | + + + + + | [facility] OF | [address] | [place] [address] | | | PATHOLOGY | [address] | | | + + + + + BILIRUBIN, TOTAL (02/17/2002 1:15 PM PST) + +-------+ + + + | Component | Value | Ref Range | Performed | Pathologist | | | | | At | Signature | + +-------+ + + + | BILIRUBIN | 1.1 | 0.3 - 1.2 mg/dL | [facility] | | | TOTAL | | | DEPARTMENT | | | [...] | + + + + + | [facility] DEPARTMENT OF | [address] [facility] | [place] [address] | | | PATHOLOGY | [address] | | | + + + + + | [facility] DEPARTMENT OF | [address] [facility] | [place] [address] | | | PATHOLOGY | [address] | | | + + + + + ALKALINE PHOSPHATASE, SERUM (02/17/2002 1:15 PM PST) + +-------+ + + + | Component | Value | Ref Range | Performed | Pathologist | | | | | At | Signature | + +-------+ + + + | ALK PHOS | 67 | 53 - 128 U/L | [facility] | | | | [...] | + + + + + | [facility] | [address] | [place] [address] | | | PATHOLOGY | [address] | | | + + + + + | [facility] | [address] | [place] [address] | | | PATHOLOGY | [address] | | | + + + + + documented in this encounter Visit Diagnoses Not on filedocumented in this encounter"
--- OUTSIDE RECORDS SUMMARY | ~2018-08-25 | XMS | Encounter Summary ---
Demographics + + + | Address | [address] | | | [place] [address] | + + + | Home Phone | | + + + | Preferred Language | Unknown | + + + | Marital Status | Single | + + + | Baptist Affiliation | CAT | + + + | Race | White | + + + | Ethnic Group | Not or | + + + Author + + + | Author | [facility] | + + + | Organization | [facility] | + + + | Address | Unknown | + + + | Phone | Unavailable | + + + Support + + +---------+ + | Name | Relationship | Address | Phone | + + +---------+ + | Mirian Jha | ECON | Unknown | | + + +---------+ + Care Team Providers + +------+ + | Care Electrical Construction Project Manager Name | Role | Phone | [...] Jason | | | | | | [facility] | | | | | | [place], [place] | | | | | | [address] | | | +--------+ + + + [...] | + + | 04/08/2001 11:17 AM [facility] Anesthesia PostOp Report | | | | Patient: NICOLAS ARANGO Med Rec: [id number] Sex M Bdate: 1955 | | Date/Time Data | | Entered Into [facility] | | Anesth PostOp | | Surgery Date [id number] 04/08/01 11:17 | | Anesthesiologist ENZO AGUILAR 04/08/01 11:17 | | Resident Anesthesiolog KAYDEN SOTO 04/08/01 11:17 | | | + + documented in this encounter Visit Diagnoses Not on filedocumented in this encounter"
--- OUTSIDE RECORDS SUMMARY | ~2018-08-25 | XMS | Encounter Summary ---
Demographics + + + | Address | [address] | | | [place] [address] | + + + | Home Phone | | + + + | Preferred Language | Unknown | + + + | Marital Status | Single | + + + | Christianity Affiliation | CAT | + + + [...] Team Providers + +------+ + | Care Account Consultant Name | Role | Phone | + [...] | | | | | [place] | | | | | | [place] [address] | | +--------+ + + + + [...] [facility] | | | | | | [facility] | | | | | | [facility]. [facility] | | | | | | [...] | + + + + + | [facility] | [address] | [place] [address] | | | PATHOLOGY | [address] | | | + + + + + | [facility] DEPARTMENT OF | [address] | [place] [address] | | | PATHOLOGY | [address] | | | + + + + + documented in this encounter Visit Diagnoses Not on filedocumented in this encounter"
--- OUTSIDE RECORDS SUMMARY | ~2018-08-25 | XMS | Encounter Summary ---
Demographics + + + | Address | [address] | | | [place] [address] | + + + | Home Phone | | + + + | Preferred Language | Unknown | + + + | Marital Status | Single | + + + | Orthodoxy Affiliation | CAT | + + + [...] Team Providers + +------+ + | Care Clinical Operations Specialist Name | Role | Phone | + +------+ + PCP | Unavailable | + +------+ + Encounter Details +--------+ + + + + | Date | Type | Department | Care Team | Description | +--------+ + + + + | 02/17/ | Results | | Other, Faculty | | | 2001 | Only | | [phone] | | +--------+ + + + + [...] DEPARTMENT OF | [address] | [place] [address] | | | PATHOLOGY | [address] | | | + + + + + | [place] DEPARTMENT OF | [address] | [place] [address] | | | PATHOLOGY | [address] [...] | + + + + + | [facility] DEPARTMENT OF | [address] | [place] [address] | | | PATHOLOGY | [address] | | | + + + + + | [facility] DEPARTMENT OF | [address] | [place] [address] | | | PATHOLOGY | [address] [...] | + + + + + | [facility] DEPARTMENT OF | [address] [facility] | [place] [address] | | | PATHOLOGY | [address] | | | + + + + + | [facility] DEPARTMENT OF | [address] [facility] | [place] [address] | | | PATHOLOGY | [address] [...] | + + + + + | [facility] | [address] | [place] [address] | | | PATHOLOGY | [address] | | | + + + + + | [facility] | [address] | [place] [address] | | | PATHOLOGY | [address] | | | + + + + + documented in this encounter Visit Diagnoses Not on filedocumented in this encounter"
[~2018-08-25 16:23] MED LIST: ADULT LOW DOSE81 MG PO; ATORVASTATIN CA20 MG PO; GABAPENTIN300 MG PO; TRAMADOL HCL50 MG PO; ZOFRAN ODT4 MG PO
[2018-08-25] MEDS ORDERED: VITAMIN D2000 UNIT PO (16:39)
== END 2018-08-25 18:58 | disposition short-term general hospital (02) ==
LOC: ED 16:23
PROC: 0JQ00ZZ Repair Scalp Subcutaneous Tissue and Fascia, Open Approach (ICD-10-PCS; principal; 2018-08-25)
DX: S12.01XA Stable burst fracture of first cervical vertebra, initial encounter for closed fracture (principal); S01.01XA Laceration without foreign body of scalp, initial encounter; Z85.038 Personal history of other malignant neoplasm of large intestine; Z79.82 Long term (current) use of aspirin; Z79.899 Other long term (current) drug therapy; W01.198A Fall on same level from slipping, tripping and stumbling with subsequent striking against other object, initial encounter
CPT/HCPCS: 12035; 70450; 72125; 80053; 85025; 90715; 99284-25; J1170; J2405

== ENCOUNTER 2020-05-24 07:13 | Day surgery (SDC) | payer MEDICARE, BC ==
[~2020-05-24] VITALS: Ht 180.3 cm; Wt 79.5 kg
[~2020-05-24 07:13] MED LIST changes: +ALEVE220 M1 PO; +IBUPROFEN600 MG PO; +IMITREX50 MG PO; +TYLENOL325 M1 PO; +VITAMIN D2000 UNIT PO; +VOLTAREN ARTHRI20 GM
--- NOTE | 2020-05-24 09:23 | NUR ---
05/24/20 0923 Princess Sims 0907 PT TO PACU SLEEPY WITH ORAL AIRWAY IN PLACE ON ROOM AIR HIS SATS REMAINED ABOVE 95%
--- NOTE | 2020-05-24 09:49 | NUR ---
PT ALERT, ORIENTED AND HAS HAD PREVIOUS SCOPES. PT SEEMS CALM, RELAXED AND ALL QUESTIONS ASKED ANSWERED. PT DECLINED PRAYER, GAVE BLESSING WILL FOLLOW
--- NOTE | 2020-05-24 10:56 | OR ---
[facility] [address] [place], [place] [address] Signed DATE OF OPERATION: 05/24/2020 SURGEON: Elenita Leal MD PREOPERATIVE DIAGNOSES: 1. Anal condyloma/cancer in 1997. 2. Radiation and chemotherapy in 1998. 3. Salvage abdominoperineal resection [place] [address] Dakota Macario. 4. Colonoscopy in 2006 with small adenoma at 10 cm from edge of colostomy. 5. Unremarkable colonoscopy in 2011. 6. Unremarkable colonoscopy in 2014. 7. Mother with history of colonic polyps. 8. Small chronic parastomal hernia. POSTOPERATIVE DIAGNOSES: 1. Angulated colostomy. 2. Small peristomal hernia. PROCEDURE: Colonoscopy without biopsy. ESTIMATED BLOOD LOSS: None. INDICATIONS: Nicolas is a 64-year-old gentleman who was found to have cancerous anal condyloma in 1997. He underwent radiation chemotherapy in 1998. He had a salvage abdominoperineal resection in [address] [place] Macario[place] and has a small chronic parastomal hernia. Dr. Macario performed a colonoscopy in 2006 and found a small adenomatous polyp 10 cm from the edge of the colostomy. Dr. Macario performed a negative colonoscopy in 2011. Dr. Hawk performed a negative colonoscopy in 2014. In addition, Nicolas's mother is known to have colonic polyps. I was asked to help Nicolas with his followup 5-year colonoscopy here in [place], [place]. I had met with Nicolas in the office. I gave him a pamphlet on colonoscopy. He understands the nature of the test along with the risks including, but not limited to gas bloating, crampy abdominal pain, bleeding, perforation requiring surgery, and missed diagnosis. Also, he explained that opiates cause severe headaches. He specifically requested no narcotics. In that regard, we need an anesthesia provider to help us with increased monitoring and sedation with propofol. Daniel had expressed understanding and wished to proceed. Electronically Signed By: ELENITA LEAL MD 05/24/20 1056 PATIENT NAME: NICOLAS ARANGO OPERATIVE REPORT DATE OF : 53 REPORT #: [id number] PHYSICIAN: ELENITA LEAL MD PCP: JAZZMINE EUGENE MD REPORT IS CONFIDENTIAL AND NOT TO BE RELEASED WITHOUT AUTHORIZATION [facility] [address] [place] [id number] Signed PROCEDURE NOTE: Nicolas was taken into our endoscopy suite initially, placed in the left lateral decubitus position. He was placed under IV sedation with propofol per our nurse teasel gig operator. We very carefully examined the perineum and found that it is well healed without any evidence of any recurrent cancer or other issues. After this, Nicolas was rotated into the supine position. His colostomy bag had been removed. I carefully examined his colostomy initially with 5th digit then my index finger. I could feel the fascial edge probably 2 cm wide by maybe 3 cm in length. No major peristomal hernia. Yet, I could not palpate an obvious opening. The adult colonoscope had been introduced and after a few minutes, we simply could not find any opening to the colostomy yet we know it is functioning quite well. We re-examined the colostomy once again with the index finger. Again, the adult colonoscope could not find an opening. We thought maybe there was an opening off to the one side. We switched out to our much smaller gastroscope and we could see a very small opening, but had trouble intubating that area during his respiratory cycles. We placed an oral airway which helped to settle down the snoring and his respiratory cycles and I had the nurse hold on either side of his colostomy to secure the abdominal wall. It took me just a minute then, defined opening and passed the adult gastroscope down through without any resistance whatsoever and all the way around to the cecum itself. His prep was quite excellent. We could easily see the appendiceal orifice. We could also see the ileocecal valve. The scope was then slowly withdrawn. We took a couple pictures for photodocumentation. The entire colon was unremarkable. I did not see any adenomatous polyps nor any diverticula. Again, the gastroscope came through the colostomy quite well and from a clinical standpoint, the colostomy is functioning quite well. After this, a new colostomy appliance was applied. Nicolas was then taken into the recovery room in stable condition. Elenita Leal MD ALB/MODL /[id number] cc: MD Dakota Grijalva MD Electronically Signed By: ELENITA LEAL MD 05/24/20 1056 PATIENT NAME: NICOLAS ARANGO OPERATIVE REPORT DATE OF : 53 REPORT #: [id number] PHYSICIAN: ELENITA LEAL MD PCP: JAZZMINE EUGENE MD REPORT IS CONFIDENTIAL AND NOT TO BE RELEASED WITHOUT AUTHORIZATION [facility] [address] [place], [place] [address] Signed Elenita Leal MD Copies: JAZZMINE EUGENE MD, MARK MD BOWER, ANDREW L MD ~ Electronically Signed By: ELENITA LEAL MD 05/24/20 1056 PATIENT NAME: NICOLAS ARANGO OPERATIVE REPORT DATE OF : 53 REPORT #: [id number] PHYSICIAN: ELENITA LEAL MD PCP: JAZZMINE EUGENE MD REPORT IS CONFIDENTIAL AND NOT TO BE RELEASED WITHOUT AUTHORIZATION
== END 2020-05-24 09:40 | disposition home or self-care (01) ==
LOC: OPS 07:13 → DS 07:13 → OPS 08:15 → DS 08:15 → OPS 09:40
PROVIDERS: ATTEND Colon & Rectal Surgery
PROC: 0DJD8ZZ Inspection of Lower Intestinal Tract, Via Natural or Artificial Opening Endoscopic (ICD-10-PCS; principal; 2020-05-24 08:15)
DX: K43.5 Parastomal hernia without obstruction or gangrene (principal); E78.5 Hyperlipidemia, unspecified; Z93.3 Colostomy status; Z86.010 Personal history of colon polyps; Z85.048 Personal history of other malignant neoplasm of rectum, rectosigmoid junction, and anus; Z20.822 Contact with and (suspected) exposure to COVID-19
CPT/HCPCS: J2704; J7121